=== PATIENT | male | born 1930 | race Caucasian/White ===

== ENCOUNTER 2020-12-20 08:02 | Inpatient (IN) ==
[~2020-12-20 08:02] MED LIST: OPTIRAY 320 125ml IV ONE; SODIUM CHLORIDE 0.9% 250 ML IV ONE
[2020-12-20 08:20] LABS: Basophils # (auto) 0.02 K/uL (0-0.2); Basophils % (auto) 0.3 %; Eosinophils # (auto) 0.24 K/uL (0-0.5); Eosinophils % (auto) 3.7 %; Hemoglobin 15.4 g/dL (14.0-18.0); Immature Granulocytes # (auto) 0.04 K/uL (0.00-0.02); Immature Granulocytes % (auto) 0.6 %; Lymphocytes # (auto) 2.15 K/uL (1.2-3.4); Lymphocytes % (auto) 33.3 %; Mean Corpuscular Hemoglobin 31.4 pg (25-34); Mean Corpuscular Hgb Conc 33.5 g/dL (32-36); Mean Corpuscular Volume 93.9 fL (80-100); Mean Platelet Volume 8.7 fL (7.4-10.4); Monocytes # (auto) 0.81 K/uL (0.11-0.59); Monocytes % (auto) 12.6 %; Neutrophils # (auto) 3.19 K/uL (1.4-6.5); Neutrophils % (auto) 49.5 %; Platelet Count 196 K/uL (130-400); RDW Coefficient of Variation 12.9 % (11.5-14.5); RDW Standard Deviation 44.5 fL (36.4-46.3); White Blood Count 6.45 K/uL (4.8-10.8)
--- NOTE | 2020-12-20 08:30 | CT Scan Report ---
HEAD CT NONCONTRAST CT DOSE: HISTORY: Stroke Like Symptoms TECHNIQUE: Multiaxial CT images of the head were performed without the use of intravenous contrast. A utomated exposure control was utilized for this study. A dose lowering technique was utilized adheri ng to the principles of ALARA. Comparison: None. Findings: The paranasal sinuses and mastoid air cells are clear. The calvarium and skull base are int act. There is no mass, hematoma, midline shift, acute infarct. White matter hypodensity is nonspecifi c but suggestive of microvascular ischemic change. The ventricles and sulci demonstrate mild age-rela kyler involutional changes. 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 Impression: No acute intracranial abnormality. Old lacunar infarcts seen within the bilateral cerebellar hemisphe res. ACT 112: Negative or not required by law. Electronically signed by: Al Felton M.D. 12/20/2020 8:29 AM
--- NOTE | 2020-12-20 08:34 | CT Scan Report ---
HEAD CTA HISTORY: Stroke Like Symptoms TECHNIQUE: Multiaxial CT images of the head were performed following the intravenous administration o f contrast to evaluate the major cerebral vessels. Maximum intensity projection images were also obta ined. A dose lowering technique was utilized adhering to the principles of ALARA. COMPARISON: Head CT 12/20/2020. FINDINGS: There is no mass, hematoma, midline shift, or acute infarct. Visualized intracranial communications marketing intern al carotid arteries, distal vertebral arteries, and basilar artery are widely patent. There is no sig nificant stenosis, occlusion, or aneurysm seen within the bilateral ACAs, MCAs, or fire tender. Hypoplastic distal right vertebral artery. Mild calcified plaque within the distal left vertebral artery. The carmela or dural venous sinuses are patent. Moderate calcified plaque within the bilateral carotid siphons. IMPRESSION: No significant stenosis, occlusion, or aneurysm within the [place]. ACT 112: Negative or not required by law. Electronically signed by: Al Felton M.D. 12/20/2020 8:32 AM
[2020-12-20 08:35] LABS: Alanine Aminotransferase 39 U/L (12-78); Albumin Level 3.6 gm/dl (3.4-5.0); Aspartate Aminotransferase 18 U/L (15-37); BUN Creatinine Ratio 24.6 (10-20); Blood Urea Nitrogen 27 mg/dl (7-18); Calcium 9.1 mg/dl (8.5-10.1); Carbon Dioxide 27 mmol/L (21-32); Chloride 109 mmol/L (98-107); Creatinine Clr Calc Pharmacy 40.6 ml/min; Est GFR (African American) 69.4; Est GFR (Non-African American) 59.9; Glucose 99 mg/dl (70-99); Sodium 143 mmol/L (136-145)
[2020-12-20 08:40] LABS: Albumin Globulin Ratio 1.1 (0.9-2); Alkaline Phosphatase 96 U/L (45-117); Bilirubin,Total 0.7 mg/dl (0.2-1); Globulin 3.2 gm/dl (2.5-4.0); Total Protein 6.8 gm/dl (6.4-8.2); Troponin I < 0.015 ng/ml (0-0.045)
--- NOTE | 2020-12-20 08:41 | CT Scan Report ---
CT angio neck with con CLINICAL HISTORY: Stroke Like Symptoms COMPARISON STUDY: No previous studies for comparison. TECHNIQUE: CT angiography was performed from the aortic arch to the skull base. MIP imaging was perfo rmed. The patient was scanned in a dynamic helical fashion during intravenous administration of 120 c c of Optiray 320. A dose lowering technique was utilized adhering to the principles of ALARA. CT DOSE: 1207.31 mGy.cm Technique: CT angiogram of the carotid and vertebral arteries was obtained using intravenous contrast and 3-D reconstruction. NASCET criteria was utilized. Findings: There is pulmonary emphysema There is a multinodular thyroid gland. There is calcific atheromatous plaque within the right innominate artery and right common carotid art hayden without evidence of a hemodynamically significant stenosis. There is dense calcific plaque involv ing the origin of the right internal carotid artery resulting in a 40% diameter stenosis. There is calcific plaque within the left common carotid artery resulting in a 40% diameter stenosis. There is no evidence of hemodynamically significant internal carotid artery stenosis. 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 There is no evidence of hemodynamically significant left v ertebral artery stenosis or dissection. There is a right vertebral artery origin stenosis. There is m ultifocal right vertebral artery stenosis due to facet and uncovertebral joint disease IMPRESSION: 1. Moderately extensive calcific atheromatous plaque 2. 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 No evidence of high-grade carotid stenosis. 3. 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 ACT 112: Negative or not required by law. Electronically signed by: Michael Faye M.D. 12/20/2020 8:39 AM
--- NOTE | 2020-12-20 08:46 | Emergency Department Note ---
Impression & Plan Left-sided weakness, HTN (hypertension), Cerebral vascular disease, Dehydration, mild, Fall, On clopidogrel therapy ED Provider Note NAME: GERALDO OLSEN AGE: 89 SEX: M ARRIVES VIA: Ambulance INFORMANT: Patient, ED PROVIDER(S): Jared Menjivar MD CHIEF COMPLAINT: Fall, left sided weakness. PLAN: Disposition: Admit Initially seen @ 0800 MEDICAL DECISION MAKING: The patient is a pleasant 89-year-old gentleman with a past medical history of COPD, left subclavian artery stenosis/vascular disease, hypertension, hyperlipidemia, cognitive dysfunction/late onset Alzheimer's disease who presents emergency department with fall this morning which he reports happened because he could not stand because of the sensation of left leg weakness. There is no LOC. EMS arrived to the scene the patient was unable to get up and stand on his own. He takes Plavix but no other known anticoagulation. He reports been healthy prior to today and was last normal in strength when he went to bed at 10 PM last night. Stroke alert was activated in the field prior to arrival. Patient has any recent illness including fevers, chills, cough, congestion, nausea, vomiting, diarrhea, urinary symptoms. He denies any known COVID-19 exposures. Did speak with the patient's over the phone who also reports that he normally can walk without much difficulty and his new weakness was an acute change. On arrival the patient is in no acute distress, afebrile with blood pressure 150s/70s and vital signs otherwise stable. The patient appears clinically dry. He does exhibit left-sided weakness of the upper and lower extremity with 4/5 strength. Face is symmetric. He has no overt aphasia or dysarthria. Initial EKG with poor baseline artifact however likely sinus rhythm, 95 bpm, no overt ST elevation or depression. Chest x-ray negative for acute cardiopulmonary process. Given the patient's last known well was last night at 10 PM he was not a TPA candidate. Moreover CT of the head and CTA head neck were performed and was negative for ICH, CVA and did not demonstrate any large vessel occlusion amenable to endovascular therapy and so telestroke evaluation via monitor was deferred. WBC, H/H and platelets within normal limits. Chemistry without metabolic acidosis. BUN/creatinine> 20 consistent with the patient's clinically dry appearance. LFTs are unremarkable. Troponin negative/undetectable. UA without evidence of infection. COVID-19 RNA, NAAT test was negative. CT of the chest abdomen pelvis also performed to exclude any traumatic process to explain the patient's symptoms and was unremarkable. The patient's new left-sided weakness reasonable to meet the patient for further stroke evaluation. The patient and his over the phone are agreed with this plan. Case was discussed with Carmenza Winter, [facility] PAC, with Dr. Corea, [facility] hospitalist who will evaluate the patient for admission. Triage Nursing notes reviewed and agree them. Additional history obtained from /ems. Prior medical records reviewed Vital Signs: reviewed and remarkable for no significant abnormalities Differential diagnosis: Infection, dehydration, metabolic abnormality, hypo/hyperglycemia, electrolyte disturbance, anemia, hypoxia, cardiac sources, intracerebral event, toxicologic, neurologic, as well as other pathologies. ER treatment provided: See below. Diagnostics interpreted by me: ECG: Sinus rhythm, 95 bpm, no ectopy, no overt ST elevation or depression. Cardiac Monitoring: An order for continuous cardiac monitoring was placed and demonstrated Sinus rhythm, 95 bpm, no ectopy. Laboratory studies: See below Imaging studies: XR chest 1V portable HISTORY: Stroke Like Symptoms COMPARISON: None. FINDINGS: No focal lung consolidations to suggest pneumonia. No evidence for pulmonary edema. There are poststernotomy changes. The heart is normal in size. No pleural effusions. No pneumothorax. There is a vascular stent superior to the aortic knob. There is emphysema with mild chronic interstitial thickening. IMPRESSION: No acute process within the chest. Chronic changes as described above. ACT 112: Negative or not required by law. Electronically signed by: Al Felton M.D. 12/20/2020 9:10 AM -- HEAD CTA HISTORY: Stroke Like Symptoms TECHNIQUE: Multiaxial CT images of the head were performed following the intravenous administration of contrast to evaluate the major cerebral vessels. Maximum intensity projection images were also obtained. A dose lowering techn ique was utilized adhering to the principles of ALARA. COMPARISON: Head CT 12/20/2020. FINDINGS: There is no mass, hematoma, midline shift, or acute infarct. Visualized intracranial internal carotid arteries, distal vertebral arteries, and basilar artery are widely patent. There is no significant stenosis, occlusion, or aneurysm seen within the bilateral ACAs, MCAs, or publicity manager. Hypoplastic distal right vertebral artery. Mild calcified plaque within the distal left vertebral artery. The major dural venous sinuses are patent. Moderate calcified plaque within the bilateral carotid siphons. IMPRESSION: No significant stenosis, occlusion, or aneurysm within the [place]. ACT 112: Negative or not required by law. Electronically signed by: Al Felton M.D. 12/20/2020 8:32 AM -- CT angio neck with con CLINICAL HISTORY: Stroke Like Symptoms COMPARISON STUDY: No previous studies for comparison. TECHNIQUE: CT angiography was performed from the aortic arch to the skull base. MIP imaging was performed. The patient was scanned in a dynamic helical fashion during intravenous administration of 120 cc of Optiray 320. A dose lowering technique was utilized adhering to the principles of ALARA. CT DOSE: 1207.31 mGy.cm Technique: CT angiogram of the carotid and vertebral arteries was obtained using intravenous contrast and 3-D reconstruction. NASCET criteria was utilized. Findings: There is pulmonary emphysema There is a multinodular thyroid gland. There is calcific atheromatous plaque within the right innominate artery and right common carotid artery without evidence of a hemodynamically significant stenosis. There is dense calcific plaque involving the origin of the right internal carotid artery resulting in a 40% diameter stenosis. There is calcific plaque within the left common carotid artery resulting in a 40% diameter stenosis. There is no evidence of hemodynamically significant internal carotid artery stenosis. 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 There is no evidence of hemodynamically significant left vertebral artery stenosis or dissection. There is a right vertebral artery origin stenosis. There is multifocal right vertebral artery stenosis due to facet and uncovertebral joint disease IMPRESSION: 1. Moderately extensive calcific atheromatous plaque 2. 40% diameter stenosis of the origin of the right internal carotid artery, and 40% diameter stenosis in the proximal left common carotid artery. No evidence of high-grade carotid stenosis. 3. 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 Multifocal right vertebral artery stenosis due to facet and uncovertebral joint disease. ACT 112: Negative or not required by law. Electronically signed by: Michael Faye M.D. 12/20/2020 8:39 AM Dictated: 12/20/20827 Transcribed: 12/20/20827 -- CT chest diagnostic wo con CLINICAL HISTORY: Chest pain status post trauma. BILATERAL LEG WEAKNESS. COMPARISON STUDY: Chest x-ray dated 12/20/2020 CT DOSE: 517.30 mGy.cm TECHNIQUE: CT of the thorax was performed from the thoracic inlet to the lung bases. Images are reviewed in the axial, sagittal, and coronal planes. IV contrast was not administered for this examination. A dose lowering technique was utilized adhering to the principles of ALARA. FINDINGS: Thyroid: There is a 19 mm right lobe thyroid nodule. Thoracic aorta: There is a left subclavian artery stent. There are atheromatous calcifications involving the origin of the great vessels. There is no evidence of thoracic aortic aneurysm. Heart: There are coronary artery calcifications. There is no pericardial effusion. Lungs and pleural spaces: The lungs and pleural spaces are clear. There is pulmonary emphysema. There is no pneumothorax. There are basilar atelectatic changes. There is no lobar consolidation. There is no evidence of pulmonary contusion. Mediastinum: There is no evidence of mediastinal hematoma. There is no evidence of pathologic mediastinal lymphadenopathy. There are calcified lymph nodes. Olga: There is no evidence of pathologic hilar adenopathy given the limitations of a noncontrast study Axilla: There is no evidence of pathologic axillary lymphadenopathy. Upper abdomen: Partially visualized upper abdominal viscera is within normal limits. Skeletal structures: No definite acute fractures are visualized. Several minor to a body compression deformities are likely old. There is ankylosis the spine with calcification of the anterior longitudinal ligament. IMPRESSION: No evidence of acute intrathoracic injury. ACT 112: Negative or not required by law. Electronically signed by: Michael Faye M.D. 12/20/2020 10:28 AM Dictated: 12/20/20 1023Transcribed: 12/20/20 1023 -- CT OF THE ABDOMEN AND PELVIS WITHOUT CONTRAST CLINICAL HISTORY: Left hip pain status post fall. COMPARISON STUDY: No previous studies for comparison. TECHNIQUE: Axial images of the abdomen and pelvis were obtained without IV contrast. Images were reviewed in the axial, sagittal, and coronal planes. Automated exposure control was utilized for the study. A dose lowering technique was utilized adhering to the principles of ALARA. FINDINGS: Note is made of contrast within the collecting systems, ureters and bladder from recent contrast-enhanced CT. No hemoperitoneum or pneumoperitoneum is present. Evaluation of the abdomen and pelvis is suboptimal on this unenhanced examination. There is no evidence for traumatic injury to the liver, spleen, adrenal glands, kidneys or pancreas on this unenhanced exam. There are small gallstones within the gallbladder. A small suspected right renal cyst is present. There is no hydronephrosis. No lymphadenopathy is present. There is a moderate amount of stool within the rectum. There is no evidence for a bowel obstruction. A right femoral internal fixation is partially imaged. There is a healed intertrochanteric fracture of the right femur. An L1 compression fracture is likely old. No acute fracture within the pelvis or hips is identified. No acute lumbar spine fracture is identified. Moderate multilevel degenerative changes within the lumbar spine are present. There is mild dextroscoliosis of the lumbar spine. Sacroiliac joints are intact. IMPRESSION: 1. No acute traumatic findings within the abdomen or pelvis on unenhanced exam. 2. No acute fracture within the pelvis or hips. L1 compression fracture which is likely old. 3. Moderate amount of stool within the rectum. 4. Cholelithiasis. ACT 112: Negative or not required by law. Electronically signed by: Jermaine Moralez M.D. 12/20/2020 10:36 AM Dictated: 12/20/20 1029Transcribed: 12/20/20 1029 -- Consultation(s): Case was discussed with Carmenza Winter, [facility] PAC, with Dr. Corea, [facility] hospitalist who will evaluate the patient for admission. HPI: The patient is a pleasant 89-year-old gentleman with a past medical history of COPD, left subclavian artery stenosis/vascular disease, hypertension, hyperlipidemia, cognitive dysfunction/late onset Alzheimer's disease who presents emergency department with fall this morning which he reports happened because he could not stand because of the sensation of left leg weakness. There is no LOC. EMS arrived to the scene the patient was unable to get up and stand on his own. He takes Plavix but no other known anticoagulation. He reports been healthy prior to today and was last normal in strength when he went to bed at 10 PM last night. Stroke alert was activated in the field prior to arrival. Patient has any recent illness including fevers, chills, cough, congestion, nausea, vomiting, diarrhea, urinary symptoms. He denies any known COVID-19 exposures. Did speak with the patient's over the phone who also reports that he normally can walk without much difficulty and his new weakness was an acute change. ROS: See above HPI for pertinent positives & negatives. A total of 10 systems reviewed and were otherwise negative. PAST MEDICAL HISTORY:See Below PAST SURGICAL HISTORY:See Below FAMILY HISTORY:See Below SOCIAL HISTORY:See Below HOME MEDICATIONS:See Below ALLERGIES:See Below VITALS:See Below PHYSICAL EXAMINATION: GENERAL: Awake, alert, fatigued-appearing, in no distress HENT: Normocephalic, atraumatic. Oropharynx with dry mucous membranes and otherwise unremarkable. EYES: Normal conjunctiva. Sclera non-icteric. NECK: Supple. No nuchal rigidity. FROM. No JVD. RESPIRATORY: Clear to auscultation. CARDIAC: Regular rate, normal rhythm. Extremities warm and well perfused. Pulses equal. ABDOMEN: Soft, non-distended. No tenderness to palpation. No rebound or guarding. No masses. RECTAL: Deferred. MUSCULOSKELETAL: Chest examination reveals no tenderness. The back is symmetrical on inspection without obvious abnormality. There is no CVA tenderness to palpation. No joint edema. LOWER EXTREMITIES: Calves are equal size bilaterally and non-tender. No edema. No discoloration. NEURO: 4/5 strength of left upper and left lower extremity. Right upper and rig ht lower extremity with 5/5 strength. No overt aphasia or dysarthria. SKIN: Left hand skin tears. No rash or jaundice noted. 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 Surgical History H/O angioplasty L subclavian stent History of carpal tunnel release History of coronary artery bypass graft x 3 2010 [place] History of surgery on extremity Femur surgery s/p fracture History of transurethral resection of prostate Family History Father , 58 Myocardial infarction 58 Mother Alzheimer disease Social History Smoking Status: Former smoker Tobacco Type: Cigarettes packs per day: 1.5; Years Smoked: 40; Hx Alcohol Use: Yes Hx Substance Use: No Preferred Language: Romansh Communication Ability: Effective marital status: Current Living Situation: Spouse current occupational status: retired Feels Safe at Home: Yes Allergies Allergies Allergy/AdvReac Type Severity Reaction Status Date / Time salicylates AdvReac Severe GIB Verified 12/20/20 10:42 povidone-iodine AdvReac Mild rash Verified 12/20/20 10:42 [From Betadine] soap [From Betadine] AdvReac Mild rash Verified 12/20/20 10:42 bacitracin AdvReac Unknown Verified 12/20/20 10:42 [From Neosporin ([id number])] neomycin AdvReac Unknown Verified 12/20/20 10:42 [From Neosporin ([id number])] polymyxin B AdvReac Unknown Verified 12/20/20 10:42 [From Neosporin ([id number])] Home Meds Home Medications Medication Instructions Recorded Confirmed atorvastatin 40 mg PO DAILY 12/20/20 12/20/20 clopidogrel [Plavix] 75 mg PO DAILY 12/20/20 12/20/20 metoprolol succinate 25 mg PO DAILY 12/20/20 12/20/20 mirtazapine 15 mg PO HS 12/20/20 12/20/20 Results & Data (ED) Vital Signs Vital Signs - 24 hr 12/20/20 08:19 12/20/20 08:22 12/20/20 08:23 Temperature 36.9 C Temperature Source Oral Pulse Rate 89 90 89 Pulse Rate [Apical] Pulse Rate from SpO2 Sensor 87 90 89 Respiratory Rate 14 21 20 Blood Pressure 159/79 H 159/79 H Blood Pressure [Left Arm] Blood Pressure Mean 105 105 Blood Pressure Mean [Left Arm] Pulse Oximetry 94 94 93 Oxygen Delivery Method Room Air Sepsis Recent Fever Within 48 Hours No Sepsis New/Unexplained Change in Mental Status No Sepsis Action Taken by Nursing No Action Required 12/20/20 08:30 12/20/20 09:00 12/20/20 09:09 Temperature Temperature Source Pulse Rate 89 82 80 Pulse Rate [Apical] Pulse Rate from SpO2 Sensor 89 82 80 Respiratory Rate 24 21 24 Blood Pressure 159/73 H Blood Pressure [Left Arm] Blood Pressure Mean 101 Blood Pressure Mean [Left Arm] Pulse Oximetry 94 92 93 Oxygen Delivery Method Sepsis Recent Fever Within 48 Hours Sepsis New/Unexplained Change in Mental Status Sepsis Action Taken by Nursing 12/20/20 09:30 12/20/20 09:51 Temperature Temperature Source Pulse Rate 79 Pulse Rate [Apical] 79 Pulse Rate from SpO2 Sensor Respiratory Rate 17 18 Blood Pressure 157/74 H Blood Pressure [Left Arm] 157/78 H Blood Pressure Mean 101 Blood Pressure Mean [Left Arm] 104 Pulse Oximetry 96 Oxygen Delivery Method Room Air Sepsis Recent Fever Within 48 Hours Sepsis New/Unexplained Change in Mental Status Sepsis Action Taken by Nursing Laboratory Data Attestation: I reviewed the patient's lab results. Result diagrams: 12/20/20 08:00 12/20/20 08:00 Lab Results 12/20/20 12/20/20 12/20/20 Range/Units 08:00 08:00 08:21 WBC 6.45 (4.8-10.8) K/uL RBC 4.90 (4.7-6.1) M/uL Hgb 15.4 (14.0-18.0) g/dL Hct 46.0 (42-52) % MCV 93.9 (80-100) fL MCH 31.4 (25-34) pg MCHC 33.5 (32-36) g/dL RDW Std Deviation 44.5 (36.4-46.3) fL RDW Coeff of Ken 12.9 (11.5-14.5) % Plt Count 196 (130-400) K/uL MPV 8.7 (7.4-10.4) fL Immature Gran % (Auto) 0.6 % Neut % (Auto) 49.5 % Lymph % (Auto) 33.3 % [place] % (Auto) 12.6 % Eos % (Auto) 3.7 % Baso % (Auto) 0.3 % Neut # (Auto) 3.19 (1.4-6.5) K/uL Lymph # (Auto) 2.15 (1.2-3.4) K/uL [place] # (Auto) 0.81 H (0.11-0.59) K/uL Eos # (Auto) 0.24 (0-0.5) K/uL Baso # (Auto) 0.02 (0-0.2) K/uL Immature Gran # (Auto) 0.04 H (0.00-0.02) K/uL PT (9.0-12.0) Seconds INR (0.9-1.1) APTT (21.0-31.0) Seconds PTT Ratio Sodium 143 (136-145) mmol/L Potassium 4.0 (3.5-5.1) mmol/L Chloride 109 H (98-107) mmol/L Carbon Dioxide 27 (21-32) mmol/L Anion Gap 7.0 (3-11) BUN 27 H (7-18) mg/dl Creatinine 1.09 (0.6-1.4) mg/dl Est Cr Clr Drug Dosing 40.6 ml/min Est GFR ( Amer) 69.4 Est GFR (Non-Af Amer) 59.9 BUN/Creatinine Ratio 24.6 H (10-20) Glucose 99 (70-99) mg/dl Calcium 9.1 (8.5-10.1) mg/dl Magnesium 2.0 (1.8-2.4) mg/dl Total Bilirubin 0.7 (0.2-1) mg/dl AST 18 (15-37) U/L ALT 39 (12-78) U/L Alkaline Phosphatase 96 (45-117) U/L Troponin I < 0.015 (0-0.045) ng/ml Total Protein 6.8 (6.4-8.2) gm/dl Albumin 3.6 (3.4-5.0) gm/dl Globulin 3.2 (2.5-4.0) gm/dl Albumin/Globulin Ratio 1.1 (0.9-2) Urine Color Urine Appearance (Clear) Urine pH (4.5-7.5) Ur Specific [place] (1.000-1.030) Urine Protein (Negative) Urine Glucose (UA) (Negative) Urine Ketones (Negative) Urine Blood (Negative) Urine Nitrite (Negative) Urine Bilirubin (Negative) Urine Urobilinogen (Negative) Ur Leukocyte Esterase (Negative) Blood Type O Positive Antibody Screen NEGATIVE 12/20/20 12/20/20 Range/Units 08:21 09:25 WBC (4.8-10.8) K/uL RBC (4.7-6.1) M/uL Hgb (14.0-18.0) g/dL Hct (42-52) % MCV (80-100) fL MCH (25-34) pg MCHC (32-36) g/dL RDW Std Deviation (36.4-46.3) fL RDW Coeff of Ken (11.5-14.5) % Plt Count (130-400) K/uL MPV (7.4-10.4) fL Immature Gran % (Auto) % Neut % (Auto) % Lymph % (Auto) % [place] % (Auto) % Eos % (Auto) % Baso % (Auto) % Neut # (Auto) (1.4-6.5) K/uL Lymph # (Auto) (1.2-3.4) K/uL [place] # (Auto) (0.11-0.59) K/uL Eos # (Auto) (0-0.5) K/uL Baso # (Auto) (0-0.2) K/uL Immature Gran # (Auto) (0.00-0.02) K/uL PT 10.6 (9.0-12.0) Seconds INR 1.0 (0.9-1.1) APTT 23.2 (21.0-31.0) Seconds PTT Ratio 0.9 Sodium (136-145) mmol/L Potassium (3.5-5.1) mmol/L Chloride (98-107) mmol/L Carbon Dioxide (21-32) mmol/L Anion Gap (3-11) BUN (7-18) mg/dl Creatinine (0.6-1.4) mg/dl Est Cr Clr Drug Dosing ml/min Est GFR ( Amer) Est GFR (Non-Af Amer) BUN/Creatinine Ratio (10-20) Glucose (70-99) mg/dl Calcium (8.5-10.1) mg/dl Magnesium (1.8-2.4) mg/dl Total Bilirubin (0.2-1) mg/dl AST (15-37) U/L ALT (12-78) U/L Alkaline Phosphatase (45-117) U/L Troponin I (0-0.045) ng/ml Total Protein (6.4-8.2) gm/dl Albumin (3.4-5.0) gm/dl Globulin (2.5-4.0) gm/dl Albumin/Globulin Ratio (0.9-2) Urine Color Yellow Urine Appearance Clear (Clear) Urine pH 5.0 (4.5-7.5) Ur Specific [place] 1.045 H (1.000-1.030) Urine Protein Negative (Negative) Urine Glucose (UA) Negative (Negative) Urine Ketones Negative (Negative) Urine Blood Negative (Negative) Urine Nitrite Negative (Negative) Urine Bilirubin Negative (Negative) Urine Urobilinogen Negative (Negative) Ur Leukocyte Esterase Negative (Negative) Blood Type Antibody Screen Administered Medications Lactated Ringer's (Lr) 1,000 mls @ 80 mls/hr IV .[id number] Stop: 12/21/20 01:29 Last Admin: 12/20/20 13:16 Dose: 80 mls/hr Documented by: [id number] Discontinued Medications Sodium Chloride (Nss) 250 mls @ 999 mls/hr IV .[id number] ONE Stop: 12/20/20 08:10 Last Infusion: 12/20/20 09:15 Dose: 0 mls/hr Documented by: [id number] Admin: 12/20/20 08:50 Dose: 999 mls/hr Documented by: [id number] Ioversol (Optiray 320 125ml) 120 ml IV ONCE ONE Stop: 12/20/20 08:03 Last Admin: 12/20/20 08:03 Dose: 120 ml Documented by: [id number] Discharge Plan Visit Data Chief Complaint: Stroke Alert ED Provider: Jared Menjivar Discharge Problem: Left-sided weakness, HTN (hypertension), Cerebral vascular disease, Dehydration, mild, Fall, On clopidogrel therapy Patient Disposition: Admitted As Inpatient Discharge Instructions Interventions: ED Discharge Assessment Last Done: 12/20/20 11:36 Discharge Problem: HTN (hypertension) Qualifiers: Hypertension type: unspecified Qualified Code(s): I10 - Essential (primary) hypertension Fall Qualifiers: Encounter type: initial encounter Qualified Code(s): W19.XXXA - Unspecified fall, initial encounter
[2020-12-20 08:52] LABS: Partial Thromboplastin Ratio 0.9; Partial Thromboplastin Time 23.2 Seconds (21.0-31.0); Prothrombin Time 10.6 Seconds (9.0-12.0)
--- NOTE | 2020-12-20 09:11 | XRay Report ---
XR chest 1V portable HISTORY: Stroke Like Symptoms COMPARISON: None. FINDINGS: No focal lung consolidations to suggest pneumonia. No evidence for pulmonary edema. There a re poststernotomy changes. The heart is normal in size. No pleural effusions. No pneumothorax. There is a vascular stent superior to the aortic knob. There is emphysema with mild chronic interstitial th ickening. IMPRESSION: No acute process within the chest. Chronic changes as described above. ACT 112: Negative or not required by law. Electronically signed by: Al Felton M.D. 12/20/2020 9:10 AM
[2020-12-20 09:36] LABS: Appearance Urine Clear (Clear); Bilirubin Urine Negative (Negative); Blood Urine Negative (Negative); Color Urine Yellow; Glucose Urine UA Negative (Negative); Ketones Urine Negative (Negative); Leukocyte Esterase Urine Negative (Negative); Nitrite Urine Negative (Negative); Protein Urine Negative (Negative); Specific Gravity Urine 1.045 (1.000-1.030); Urobilinogen Urine Negative (Negative)
--- NOTE | 2020-12-20 10:29 | CT Scan Report ---
CT chest diagnostic wo con CLINICAL HISTORY: Chest pain status post trauma. BILATERAL LEG WEAKNESS. COMPARISON STUDY: Chest x-ray dated 12/20/2020 CT DOSE: 517.30 mGy.cm TECHNIQUE: CT of the thorax was performed from the thoracic inlet to the lung bases. Images are revi ewed in the axial, sagittal, and coronal planes. IV contrast was not administered for this examinatio n. A dose lowering technique was utilized adhering to the principles of ALARA. FINDINGS: Thyroid: There is a 19 mm right lobe thyroid nodule. Thoracic aorta: There is a left subclavian artery stent. There are atheromatous calcifications involv ing the origin of the great vessels. There is no evidence of thoracic aortic aneurysm. Heart: There are coronary artery calcifications. There is no pericardial effusion. Lungs and pleural spaces: The lungs and pleural spaces are clear. There is pulmonary emphysema. There is no pneumothorax. There are basilar atelectatic changes. There is no lobar consolidation. There is no evidence of pulmonary contusion. Mediastinum: There is no evidence of mediastinal hematoma. There is no evidence of pathologic mediast inal lymphadenopathy. There are calcified lymph nodes. Olga: There is no evidence of pathologic hilar adenopathy given the limitations of a noncontrast stud y Axilla: There is no evidence of pathologic axillary lymphadenopathy. Upper abdomen: Partially visualized upper abdominal viscera is within normal limits. Skeletal structures: No definite acute fractures are visualized. Several minor to a body compression deformities are likely old. There is ankylosis the spine with calcification of the anterior longitudi nal ligament. IMPRESSION: No evidence of acute intrathoracic injury. ACT 112: Negative or not required by law. Electronically signed by: Michael Faye M.D. 12/20/2020 10:28 AM
--- NOTE | 2020-12-20 10:38 | CT Scan Report ---
CT OF THE ABDOMEN AND PELVIS WITHOUT CONTRAST CLINICAL HISTORY: Left hip pain status post fall. COMPARISON STUDY: No previous studies for comparison. TECHNIQUE: Axial images of the abdomen and pelvis were obtained without IV contrast. Images were revi ewed in the axial, sagittal, and coronal planes. Automated exposure control was utilized for the mike dy. A dose lowering technique was utilized adhering to the principles of ALARA. FINDINGS: Note is made of contrast within the collecting systems, ureters and bladder from recent con trast-enhanced CT. No hemoperitoneum or pneumoperitoneum is present. Evaluation of the abdomen and pe lvis is suboptimal on this unenhanced examination. There is no evidence for traumatic injury to the l iver, spleen, adrenal glands, kidneys or pancreas on this unenhanced exam. There are small gallstones within the gallbladder. A small suspected right renal cyst is present. There is no hydronephrosis. N o lymphadenopathy is present. There is a moderate amount of stool within the rectum. There is no evid ence for a bowel obstruction. A right femoral internal fixation is partially imaged. There is a heale d intertrochanteric fracture of the right femur. An L1 compression fracture is likely old. No acute f racture within the pelvis or hips is identified. No acute lumbar spine fracture is identified. Modera te multilevel degenerative changes within the lumbar spine are present. There is mild dextroscoliosis of the lumbar spine. Sacroiliac joints are intact. IMPRESSION: 1. No acute traumatic findings within the abdomen or pelvis on unenhanced exam. 2. No acute fracture within the pelvis or hips. L1 compression fracture which is likely old. 3. Moderate amount of stool within the rectum. 4. Cholelithiasis. ACT 112: Negative or not required by law. Electronically signed by: eJrmaine Moralez M.D. 12/20/2020 10:36 AM
--- NOTE | 2020-12-20 10:40 | History & Physical Report ---
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 admit to PCU consult neurology continue plavix and statin - hx of gastric ulcer with full dose ASA obtain MRI w/ & w/o of brain echo - last had stress echo at [facility] EF 66%, negative for inducible ischemia PT/OT/ST Pt goes by, "C[facility]est[facility]" obtain orthostatics (3) Dehydration, mild: bun/ratio elevated received 250ml IVF in ED give 1 L of LR 80cc/hr repeat in a.m. (4) Skin tear of left hand without complication: consult wound care for dressing placement (5) Poor dentition: discussed with pt had 2 teeth fall out 1 week ago hx of dental abscess in past requiring extractions - concerned about infection afebrile, wbc WNL so unlikely - will obtain blood cultures for completeness dental appt next week overall poor appetite due to inability to chew consult system support developer for assistance in approp diet (6) CAD (coronary artery disease): hx of CABG x 3 hx of L subclavian artery stenosis s/p stent follows [facility] Dr. Dial in [place] continue statin, plavix, metoprolol not on ASA 2/2 to hx of bleeding ulcer - discussed with this was on 325mg asa. Has not have difficulty with ulcers in several years ekg reviewed, no CP/SOB (7) HTN (hypertension): pt hypertensive in ED allow permissible HTN for 24hrs unless negative CVA on MRI continue metoprolol (8) COPD (chronic obstructive pulmonary disease): no acute exacerbation hx of tobacco abuse prn duoneb (9) DVT prophylaxis: scd/teds for now if no s/sx of bleeding start chemical prophylaxis tomorrow Dispo: PCU PCP : Olamide FULL CODE Pt was seen and examined in collaboration with Dr. Corea, please see addendum History of Present Illness Chief Complaint: Left-sided weakness starting this morning. 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 His last known well was yesterday at approximately 10 PM. He woke up this morning, got out of bed and sustained a fall with a cut to his dorsal aspect of left hand. He experienced left-sided weakness and was unable to get up or ambulate. EMS was summoned and due to left-sided weakness weakness stroke alert was called. Due to patient being out of the TPA window he did not undergo formal stroke alert evaluation by neurology at [facility]. Upon presentation he did still have some residual left-sided weakness but no other focal neuro deficit per ED provider. Patient does complain of some mild dizziness especially with sitting forward but denies any syncope. Except for today's fall he denies any other prior falls. He denies loss of consciousness or hitting his head. He denies recent illness, fever, chills, sweats, change in hearing or vision, difficulty swallowing, chest pain, shortness of breath, cough, nausea, vomiting, abdominal pain, dysuria, increased urgency or frequency with urination, melena or hematochezia. Last BM was yesterday. Patient did not take any of his morning medications. He does state he has difficulty with memory and recommends calling for further information about today's events. states at approximately 7 AM she looked into the bedroom and he was hunched over and leaning over the bed. He stated that he needed help and that he could not move. Both of his legs were weak and he was having difficulty walking. He was also having left-sided arm weakness. He stated he needed to use the bathroom and needed help walking into the bathroom. Unfortunately he did urinate the bed which states he has never done this before. She tried to help him into the bathroom and when he reached for the door he fell and cut open his left hand and was bleeding. He was unable to get up and therefore she called EMS. In ED patient was stroke alert. He did undergo head and neck CTA along with head CT. No acute findings were noted although it did reveal High-grade stenosis of the right vertebral artery origin and multifocal right vertebral artery stenosis due to facet and uncovertebral joint disease. He underwent chest x-ray and CTA of his chest abdomen pelvis to rule out any orthopedic etiology of left-sided weakness which was mostly unremarkable. Lab work did r eveal some mild prerenal azotemia but otherwise unremarkable. Given persistent left-sided weakness and difficulty ambulating he was recommended for admission. Allergies Allergy/AdvReac Type Severity Reaction Status Date / Time salicylates AdvReac Severe GIB Verified 12/20/20 10:42 povidone-iodine AdvReac Mild rash Verified 12/20/20 10:42 [From Betadine] soap [From Betadine] AdvReac Mild rash Verified 12/20/20 10:42 bacitracin AdvReac Unknown Verified 12/20/20 10:42 [From Neosporin ([id number])] neomycin AdvReac Unknown Verified 12/20/20 10:42 [From Neosporin ([id number])] polymyxin B AdvReac Unknown Verified 12/20/20 10:42 [From Neosporin ([id number])] Home Medications Medication Instructions Recorded Confirmed Type atorvastatin 40 mg PO DAILY 12/20/20 12/20/20 History clopidogrel [Plavix] 75 mg PO DAILY 12/20/20 12/20/20 History metoprolol succinate 25 mg PO DAILY 12/20/20 12/20/20 History mirtazapine 15 mg PO HS 12/20/20 12/20/20 History Past Med/Surg History Medical History CAD (coronary artery disease) Carotid artery stenosis s/p L CEA Cerebral vascular disease hx of small cerebellar lacunar infarct, R occipital infarct COPD (chronic obstructive pulmonary disease) HLD (hyperlipidemia) HTN (hypertension) 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 Surgical History H/O angioplasty L subclavian stent History of carpal tunnel release History of coronary artery bypass graft x 3 2010 [place] History of surgery on extremity Femur surgery s/p fracture History of transurethral resection of prostate Family History Father , 58 Myocardial infarction 58 Mother Alzheimer disease Social History Smoking Status: Former smoker Tobacco Type: Cigarettes packs per day: 1.5; Years Smoked: 40; Hx Alcohol Use: Yes Hx Substance Use: No Preferred Language: Martiniquais Communication Ability: Effective marital status: Current Living Situation: Spouse current occupational status: retired Feels Safe at Home: Yes Review of Systems Review of Systems: All systems reviewed & are unremarkable except as noted in HPI & below Physical Exam Physical Exam: Constitutional: Elderly, male, thin, vitals as above, NAD, sitting up in bed, pleasant, hard of hearing, answers questions appropriately Head: Normocephalic, Atraumatic Eyes: PERRL, conjunctivae normal, anicteric sclerae ENMT: external ear and nose normal, oropharynx normal Neck: trachea midline, no thyromegaly normal visual inspection Respiratory: Diminished breath sounds throughout, distant breath sounds, poor air exchange, normal respiratory effort, otherwise lungs clear to auscultation, no wheeze, rales, rhonchi. 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 Skin: Skin tear to dorsum of left hand x2, 2 cm skin tear distal to second and third phalanx, 4 cm skin tear to medial aspect of dorsum of left hand, no rashes, warm and dry mild turgor Neurologic: PERRL, EOMI, accommodation nl, no face palsy, no dysarthria CN's II-XI intact bilaterally and moves all extremities Psychiatric: A+Ox3, euthymic affect Lymphatic: no cervical or axillary lymphadenopathy : deferred Results & Data Results & Data ([facility]) Vital Signs (Past 12 Hours) Vital Signs Temp Pulse Pulse Resp BP BP Pulse Ox 12/20/20 09:51 79 18 157/78 H 96 12/20/20 09:30 79 17 157/74 H 12/20/20 09:09 80 24 159/73 H 93 12/20/20 09:00 82 21 92 12/20/20 08:30 89 24 94 12/20/20 08:23 89 20 93 12/20/20 08:22 90 21 159/79 H 94 12/20/20 08:19 36.9 C 89 14 159/79 H 94 Diagnostic Findings Neck CTA: IMPRESSION: 1. Moderately extensive calcific atheromatous plaque 2. 40% diameter stenosis of the origin of the right internal carotid artery, and 40% diameter stenosis in the proximal left common carotid artery. No evidence of high-grade carotid stenosis. 3. 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 Multifocal right vertebral artery stenosis due to facet and uncovertebral joint disease. Head CTA: IMPRESSION: No significant stenosis, occlusion, or aneurysm within the [place]. Head CT: Impression: No acute intracranial abnormality. Old lacunar infarcts seen within the bilateral cerebellar hemispheres. CXR: IMPRESSION: No acute process within the chest. Chronic changes as described above. Chest CT: IMPRESSION: No evidence of acute intrathoracic injury. CT abd/pelvis: IMPRESSION: 1. No acute traumatic findings within the abdomen or pelvis on unenhanced exam. 2. No acute fracture within the pelvis or hips. L1 compression fracture which is likely old. 3. Moderate amount of stool within the rectum. 4. Cholelithiasis. Medications Administered Discontinued Medications Sodium Chloride (Nss) 250 mls @ 999 mls/hr IV .Q16M ONE Stop: 12/20/20 08:10 Last Infusion: 12/20/20 09:15 Dose: 0 mls/hr Documented by: [id number] Admin: 12/20/20 08:50 Dose: 999 mls/hr Documented by: [id number] Ioversol (Optiray 320 125ml) 120 ml IV ONCE ONE Stop: 12/20/20 08:03 Last Admin: 12/20/20 08:03 Dose: 120 ml Documented by: [id number] ECG Rhythm: normal sinus Findings: + 1st degree AV block (258ms) COVID-19 Results Results COVID-19 Adm Lab Results: RBC 4.90 M/uL (4.7-6.1) 12/20/20 WBC 6.45 K/uL (4.8-10.8) 12/20/20 Hgb 15.4 g/dL (14.0-18.0) 12/20/20 Hct 46.0 % (42-52) 12/20/20 Plt Count 196 K/uL (130-400) 12/20/20 Neutrophils (%) (Auto) 49.5 % 12/20/20 Lymphocytes (%) (Auto) 33.3 % 12/20/20 Monocytes # (Auto) 0.81 K/uL (0.11-0.59) H 12/20/20 Eosinophils # (Auto) 0.24 K/uL (0-0.5) 12/20/20 Immature Granulocyte % (Auto) 0.6 % 12/20/20 Neutrophils # (Auto) 3.19 K/uL (1.4-6.5) 12/20/20 Lymphocytes # (Auto) 2.15 K/uL (1.2-3.4) 12/20/20 Monocytes # (Auto) 0.81 K/uL (0.11-0.59) H 12/20/20 Eosinophils # (Auto) 0.24 K/uL (0-0.5) 12/20/20 Basophils # (Auto) 0.02 K/uL (0-0.2) 12/20/20 Immature Granulocyte # (Auto) 0.04 K/uL (0.00-0.02) H 12/20/20 Na 143 mmol/L (136-145) 12/20/20 K 4.0 mmol/L (3.5-5.1) 12/20/20 Cl 109 mmol/L (98-107) H 12/20/20 CO2 27 mmol/L (21-32) 12/20/20 Anion Gap 7.0 (3-11) 12/20/20 BUN 27 mg/dl (7-18) H 12/20/20 Creatinine 1.09 mg/dl (0.6-1.4) 12/20/20 BUN/Creatinine Ratio 24.6 (10-20) H 12/20/20 Glucose Level 99 mg/dl (70-99) 12/20/20 Ca 9.1 mg/dl (8.5-10.1) 12/20/20 Total Bilirubin 0.7 mg/dl (0.2-1) 12/20/20 AST/SGOT 18 U/L (15-37) 12/20/20 ALT/SGPT 39 U/L (12-78) 12/20/20 Alkaline Phosphatase 96 U/L (45-117) 12/20/20 Total Protein 6.8 gm/dl (6.4-8.2) 12/20/20 Albumin 3.6 gm/dl (3.4-5.0) 12/20/20 Globulin 3.2 gm/dl (2.5-4.0) 12/20/20 Albumin/Globulin Ratio 1.1 (0.9-2) 12/20/20 Troponin I < 0.015 ng/ml (0-0.045) 12/20/20 PTT 23.2 Seconds (21.0-31.0) 12/20/20 INR 1.0 (0.9-1.1) 12/20/20 SARS-CoV-2, RNA, NAAT NEGATIVE (NEGATIVE) 12/20/[address] 12/20/20 Chest X-Ray 12/20/20 Code Status & VTE Plan Code Status Full code VTE Prophylaxis Plan VTE Prophylaxis will be ordered: Yes Supervising Physician Co-Signing Physician Notes Patient is an 89-year-old male with multiple comorbidities presents with left- sided weakness noted since this morning. He sustained a fall while trying to ge t out of bed, but denies any head trauma or loss of consciousness. Poor historian. Complains of dizziness. Had ambulatory dysfunction. Also had bladder incontinence this morning. Please review HPI for complete details of presentation. CT head and neck showed no acute findings but showed findings suggestive of 40% stenosis of origin of the internal carotid artery, proximal left carotid artery. Also showed high-grade stenosis of the right vertebral artery origin. Also noted wound lacunar infarcts within bilateral cerebellar hemispheres. Imaging studies also showed L1 fracture likely old. On exam patient is elderly, thin, frail, no apparent distress, normocephalic atraumatic, lungs--decreased breath sounds, clear to auscultation, S1-S2, no murmur, abdomen soft, nontender, normal bowel sounds, alert, awake, oriented, left 4/5 LUE, LLE weakness otherwise grossly no focal neurological deficits. Patient is admitted for management of strokelike symptoms. MRI head currently pending. Blood pressure elevated, will allow permissive hypertension. Continue Plavix, statin for now. Will check lipid panel. Consulted neurology. Check orthostatics given dizziness. Speech therapy, PT OT consulted. Fall, aspiration precautions. I personally reviewed the record. Patient is interviewed and examined at bedside. Patient's care is coordinated with Carmenza Winter PA-C. Please refer to the documentation above for details of patient's presentation and for discussion of other issues.
[2020-12-20] MEDS ORDERED: ONDANSETRON INJ 2 MG/ML 2 ML VIAL IV PRN (12:51)
[2020-12-20] MEDS ORDERED: ALUMINUM/MAGNESIUM SUSP 30 ML UDC PO PRN (12:51)
[2020-12-20] MEDS ORDERED: POLYETHYLENE (MIRALAX) 17 GM PACK PO PRN (12:51)
[2020-12-20] MEDS ORDERED: PHARMACIST DISCHARGE MED REC CONSULT PRN (12:51)
[2020-12-20] MEDS ORDERED: MAGNESIUM HYDROXIDE SUSP 30 ML UDC PO PRN (12:51)
[2020-12-20] MEDS ORDERED: ALBUT/IPRATROP 3MG/0.5MG NEB 3 ML VIAL NEB PRN (12:51)
[2020-12-20] MEDS ORDERED: LACTATED RINGER'S 1,000 ML IV SCH (13:00)
--- NOTE | 2020-12-20 13:36 | Neurology Consultation ---
Date of Consultation December 20, 2020 Assessment & Plan (1) Left-sided weakness: 1. CT head- old strokes- MRI brain would be better assessment if patient can tolerate 2. CTA head and neck no significant stenosis 3. continue plavix 75 mg for now- history of bleed on aspirin in past 4. PT/OT for discharge needed 5. permissive HTN for now but then optimize HTN, HLD, LDL <70- consider patient age 6. TTE- EF 60-65% no ASD (2) Fall: 1. monitor hand - injury Present on Admission?: Yes (3) Late onset Alzheimer dementia: 1. may have some hospital delirium 2. already on remeron 15 mg hs 3. watch for sundowning Present on Admission?: Yes Supervising Physician Co-Signing Physician Notes I have seen and discussed above patient with Dr Cherri Turk, neurology patient seen and examined discussed with Cherri Estrada. Reviewed history. M RI of the brain shows a patchy right MCA infarction extending to the cortex but also involving the deep white matter it is patchy and relatively small. On exam he is awake and alert he is oriented to hospital and person but not time. There is no right left confusion. There is some denial of deficit. Cranial nerves no field cut no visual extension no flattening of the nasolabial folds and normal speech. Left upper extremity is about 4 out of 5 there is a left drift and decreased left rapid alternating movements. Left lower extremity appears full no decrement to light touch and there is no double simultaneous extinction. He is mildly clumsy on left [id number]. Impression right cortical subcortical small patchy right MCA infarction. CTA showing nothing responsible for the same. This is unrelated to his vertebral artery stenosis. There is no high-grade MCA stenosis or internal carotid stenosis. Plan modify vascular risk factors better control of blood pressure. Recommend echo cardiac monitoring. The patient should have a Zio patch hall monitor as an outpatient to rule out atrial fibrillation. Recommend checking LDL with a goal 70 or less. Would continue aspirin but not add Plavix as the patient has apparently had GI bleeding in the past. 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 He woke got out of bed and sustained a fall with a cut to his dorsal aspect of left hand. He had left-sided weakness and was unable to get up or ambulate. Stroke alert was called but he was outside the TPA window. There was still some residual left-sided weakness but no other focal neuro deficit. He was also having some mild dizziness especially with sitting forward but denies any syncope. He has difficulty with memory. Wifes report - he was hunched over and leaning over the bed. Both of his legs were weak and he was having difficulty walking. He was also having left-sided arm weakness and needed help walking into the bathroom. She tried to help him into the bathroom and when he reached for the door he fell and cut open his left hand and was bleeding. He is sitting in bed and knows he feel but cant say if he was dizzy, does not know if he had strokes in the past. denies CP, SOB, abdominal pain, +left arm dysmetric Allergies Allergy/AdvReac Type Severity Reaction Status Date / Time salicylates AdvReac Severe GIB Verified 12/20/20 10:42 povidone-iodine AdvReac Mild rash Verified 12/20/20 10:42 [From Betadine] soap [From Betadine] AdvReac Mild rash Verified 12/20/20 10:42 bacitracin AdvReac Unknown Verified 12/20/20 10:42 [From Neosporin ([id number])] neomycin AdvReac Unknown Verified 12/20/20 10:42 [From Neosporin ([id number])] polymyxin B AdvReac Unknown Verified 12/20/20 10:42 [From Neosporin ([id number])] Home Medications Medication Instructions Recorded Confirmed Type atorvastatin 40 mg PO DAILY 12/20/20 12/20/20 History clopidogrel [Plavix] 75 mg PO DAILY 12/20/20 12/20/20 History metoprolol succinate 25 mg PO DAILY 12/20/20 12/20/20 History mirtazapine 15 mg PO HS 12/20/20 12/20/20 History Patient History Medical History CAD (coronary artery disease) Carotid artery stenosis s/p L CEA Cerebral vascular disease hx of small cerebellar lacunar infarct, R occipital infarct COPD (chronic obstructive pulmonary disease) HLD (hyperlipidemia) HTN (hypertension) 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 Surgical History H/O angioplasty L subclavian stent History of carpal tunnel release History of coronary artery bypass graft x 3 2010 [place] History of surgery on extremity Femur surgery s/p fracture History of transurethral resection of prostate Family History Father , 58 Myocardial infarction 58 Mother Alzheimer disease Social History Smoking Status: Former smoker Tobacco Type: Cigarettes packs per day: 1.5; Years Smoked: 40; Hx Alcohol Use: Yes Hx Substance Use: No Preferred Language: Thai Communication Ability: Effective marital status: Current Living Situation: Spouse current occupational status: retired Feels Safe at Home: Yes Review of Systems Review of Systems: All systems reviewed & are unremarkable except as noted in HPI & below Physical Exam Physical Exam: Physical Exam: Constitutional: appearance nourished, thin Ears, Nose, Mouth and Throat: mucous membranes moist, no injection and skin normal, eyes normal Cardiovascular: normal S-1 and S-2 and regular rate and rhythm Respiratory: course breath sounds Musculoskeletal: no peripheral edema Skin: neurocutaneous disease hands left hand wrapped Eyes: extraocular muscles intact (EOMI) and pupils equal, round and reactive to light (PERRL) NEUROLOGIC EXAMINATION: Mental status: Alert and interactive Oriented [place], not year of month thinks its March, does not know hospital name. Oriented to person Speech fluent with no evidence of aphasia Cranial Nerves slight asymmetry naso labial fold on left Reflexes: Deep tendon reflexes were symmetrical and graded 2/5. Sensory: light cool intact Coordination: finger to nose on right intact, left dysmetric, heel to turcios slight dysmetric on left Gait/Stance: Posture lying in bed Motor: left side drift without pronation Strength: hand dietician biceps triceps right 5/5, left 4/5, hip flex bilaterally 5/5, plantar flex ext 5/5 bilaterally Results & Data ([facility]) Vital Signs (Past 12 Hours) Vital Signs Temp Pulse Pulse Resp BP BP Pulse Ox 12/20/20 11:00 87 18 179/97 H 96 12/20/20 09:51 79 18 157/78 H 96 12/20/20 09:30 79 17 157/74 H 12/20/20 09:09 80 24 159/73 H 93 12/20/20 09:00 82 21 92 12/20/20 08:30 89 24 94 12/20/20 08:23 89 20 93 12/20/20 08:22 90 21 159/79 H 94 12/20/20 08:19 36.9 C 89 14 159/79 H 94 Laboratory Results Abnormal lab results 12/20/20 12/20/20 12/20/20 Range/Units 08:00 08:00 09:25 [place] # (Auto) 0.81 H (0.11-0.59) K/uL Immature Gran # (Auto) 0.04 H (0.00-0.02) K/uL Chloride 109 H (98-107) mmol/L BUN 27 H (7-18) mg/dl BUN/Creatinine Ratio 24.6 H (10-20) Ur Specific [place] 1.045 H (1.000-1.030) Diagnostic Findings CT head- No acute intracranial abnormality. Old lacunar infarcts seen within the bilateral cerebellar hemispheres. CTA head-No significant stenosis, occlusion, or aneurysm within the [place]. CTA neck-Moderately extensive calcific atheromatous plaque 40% diameter stenosis of the origin of the right internal carotid artery, and 40% diameter stenosis in the proximal left common carotid artery. No evidence of high-grade carotid stenosis. 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 Multifocal right vertebral artery stenosis due to facet and uncovertebral joint disease. (1) Fall Encounter type: initial encounter Qualified Code(s): W19.XXXA - Unspecified fall, initial encounter
[2020-12-20] MEDS: CLOPIDOGREL BISULFATE 75 MG TAB PO SCH (16:00)
[2020-12-20] MEDS: ATORVASTATIN 40 MG TAB PO SCH (16:01)
[2020-12-20] MEDS ORDERED: GADOBUTROL 65ML VIAL IV ONE (16:51)
--- NOTE | 2020-12-20 18:25 | Magnetic Resonance Report ---
MR brain wo/w con HISTORY: 89 years-old Male stroke like sx acute strokelike symptoms COMPARISON: Head CT, CTA head and neck 12/20/2020 TECHNIQUE: Multiplanar multisequence MRI of the brain was obtained both with and without the use of 6 .0 mL Gadavist FINDINGS: Program Development Specialist localizer images demonstrate no gross extracranial abnormality. Small linear areas (approximate ly 5 total) of restricted diffusion are noted within the right frontal, parietal and temporal lobes a nd insula measuring up to 1.6 cm. These areas demonstrate mildly increased T2/FLAIR signal with decre ased signal on the ADC map. No acute intracranial hemorrhage, midline shift, abnormal extra-axial col lection, hydrocephalus or intracranial mass. Age-related involutional changes. Moderate T2/FLAIR hype rintensities throughout the white matter suggest chronic microvascular ischemic disease. Chronic lacu pilar infarcts of the cerebellar hemispheres. No abnormal intra-axial or extra-axial enhancement. The cerebral venous sinuses and major arterial flow voids appear patent. Prior bilateral lens repair. Mastoid air cells are clear. Rightward bowing and spurring of the nasal septum. Mild mucosal thicken ing of the ethmoid air cells. IMPRESSION: 1. There are several small acute infarcts measuring less than 2 cm within the right MCA territory as above. 2. No acute intracranial hemorrhage or midline shift. 3. Age-related involutional changes with moderate chronic microvascular ischemic disease. 3. No abnormal enhancement. 4. 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 ACT 112: Negative or not required by law. The above report was generated using voice recognition software. It may contain grammatical, syntax o r spelling errors. Electronically signed by: Jin Landrum M.D. 12/20/2020 6:24 PM
[2020-12-20] MEDS: MIRTAZAPINE TAB 15 MG TAB PO SCH (20:19)
[2020-12-20] MEDS: ACETAMINOPHEN 325 MG TAB PO PRN (20:27)
--- NOTE | 2020-12-21 06:09 | Electrocardiogram Report ---
Test Reason : Blood Pressure : / mmHG Vent. Rate : 087 BPM Atrial Rate : 087 BPM P-R Int : 268 ms QRS Dur : 094 ms QT Int : 384 ms P-R-T Axes : 000 069 004 degrees QTc Int : 462 ms Sinus rhythm with 1st degree A-V block Low voltage QRS Prolonged QT Abnormal ECG No previous ECGs available Confirmed by Kirt Jason ([id number]) on 12/21/2020 6:08:51 AM Referred By: REFERRED SELF Confirmed By:Kirt Jason
[2020-12-21 06:18] LABS: Basophils # (auto) 0.02 K/uL (0-0.2); Basophils % (auto) 0.3 %; Eosinophils # (auto) 0.17 K/uL (0-0.5); Eosinophils % (auto) 2.6 %; Hematocrit (blood only) 40.8 % (42-52); Hemoglobin 13.9 g/dL (14.0-18.0); Immature Granulocytes # (auto) 0.01 K/uL (0.00-0.02); Immature Granulocytes % (auto) 0.2 %; Lymphocytes # (auto) 1.39 K/uL (1.2-3.4); Lymphocytes % (auto) 21.2 %; Mean Corpuscular Hemoglobin 31.8 pg (25-34); Mean Corpuscular Hgb Conc 34.1 g/dL (32-36); Mean Corpuscular Volume 93.4 fL (80-100); Mean Platelet Volume 8.7 fL (7.4-10.4); Monocytes # (auto) 0.97 K/uL (0.11-0.59); Monocytes % (auto) 14.8 %; Neutrophils % (auto) 60.9 %; Platelet Count 206 K/uL (130-400); RDW Coefficient of Variation 12.9 % (11.5-14.5); RDW Standard Deviation 44.2 fL (36.4-46.3); Red Blood Count 4.37 M/uL (4.7-6.1); White Blood Count 6.56 K/uL (4.8-10.8)
[2020-12-21 06:20] LABS: Estimated Average Glucose 117 mg/dl; Hemoglobin A1C 5.7 % (4.5-5.6)
--- NOTE | 2020-12-21 06:26 | Electrocardiogram Report ---
Test Reason : Blood Pressure : / mmHG Vent. Rate : 083 BPM Atrial Rate : 083 BPM P-R Int : 258 ms QRS Dur : 098 ms QT Int : 398 ms P-R-T Axes : 083 073 008 degrees QTc Int : 467 ms Sinus rhythm with 1st degree A-V block Low voltage QRS Nonspecific T wave abnormality When compared with ECG of 20-DEC-2020 08:17, No significant change Confirmed by Kirt Jason ([id number]) on 12/21/2020 6:26:22 AM Referred By: REFERRED SELF Confirmed By:Kirt Jason
[2020-12-21 06:45] LABS: BUN Creatinine Ratio 20.9 (10-20); Calcium 8.5 mg/dl (8.5-10.1); Est GFR (African American) 89.5; Est GFR (Non-African American) 77.3; Potassium 3.9 mmol/L (3.5-5.1)
[2020-12-21] MEDS ORDERED: PNEUMOCOCCAL Polysaccharide Vaccine 25mcg/0.5mL vial/Syr IM ONE (08:00)
[2020-12-21] MEDS: ATORVASTATIN 40 MG TAB PO SCH (08:39)
[2020-12-21] MEDS: CLOPIDOGREL BISULFATE 75 MG TAB PO SCH (08:39)
[2020-12-21] MEDS: METOPROLOL SUCC 25MG EXT REL TAB PO SCH (08:39)
[2020-12-21] MEDS ORDERED: INFLUENZA ADMINISTRATION CHARGE ONE (09:00)
[2020-12-21] MEDS ORDERED: INFLUENZA VACCINE HIGH DOSE 65+ 0.7 ML SYR IM ONE (09:00)
--- NOTE | 2020-12-21 15:28 | Neurology Progress Note ---
Date of Service December 21, 2020 Assessment & Plan (1) Left-sided weakness: 1. CT head- old strokes- MRI brain - new infarcts right MCA territory 2. CTA head and neck no significant stenosis 3. continue plavix 75 mg for now- history of bleed on aspirin in past 4. PT/OT for discharge needed- will likely need rehab prior to return home 5. permissive HTN for now but then optimize HTN, HLD, LDL <70- consider patient age 6. TTE- EF 60-65% no ASD 7. ZIO as outpatient 8. follow up with neurology 4- 6 weeks after discharge from rehab. (2) Fall: 1. monitor hand - injury (3) Late onset Alzheimer dementia: 1. may have some hospital delirium 2. already on remeron 15 mg hs 3. watch for Admission and Anticipated Discharge Date Admission Date: December 21, 2020 Supervising Physician Co-Signing Physician Notes I have seen and discussed above patient with Dr Cherri Turk, neurology. Patient seen and examined discussed with Cherri Estrada. MRI shows a patchy right MCA infarction. There is no high-grade stenosis of the carotid arteries. There is no atrial dysrhythmia and echo is fairly noncontributory. Patient has no complaints. He reports ongoing weakness in the left upper extremity. He is awake and alert no facial droop speech is nondysarthric there is no field cut. Left upper extremity is best for with dystaxia and left upper extremity consistent with weakness lower extremities appear to be essentially symmetric Impression right MCA infarction plan continue Plavix, patient has had adverse effects on aspirin. Recommend good control of lipids with a goal LDL of 70 or less. Gradual reduction of blood pressure normotension. Recommend a Zio patch as an outpatient as this could be an embolic infarction. The patient should see us in follow-up post discharge. Patient will likely need inpatient physical therapy. 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 He woke got out of bed and sustained a fall with a cut to his dorsal aspect of left hand. He had left-sided weakness and was unable to get up or ambulate. Stroke alert was called but he was outside the TPA window. There was still some residual left-sided weakness but no other focal neuro deficit. He was also having some mild dizziness especially with sitting forward but denies any syncope. He has difficulty with memory. Wifes report - he was hunched over and leaning over the bed. Both of his legs were weak and he was having difficulty walking. He was also having left-sided arm weakness and needed help walking into the bathroom. She tried to help him into the bathroom and when he reached for the door he fell and cut open his left hand and was bleeding. He is sitting bedside using the urinal. He knows his left arm is "not working right". He doesn't want to go home until he is back to his baseline. denies CP, SOB, abdominal pain, +left arm dysmetric Review of Systems Review of Systems: All systems reviewed & are unremarkable except as noted in HPI & below Physical Exam Physical Exam: Physical Exam: Constitutional: appearance nourished, healthy and thin Ears, Nose, Mouth and Throat: mucous membranes moist, no injection and skin normal, eyes normal Cardiovascular: normal S-1 and S-2 and regular rate and rhythm Respiratory: course breath sounds Musculoskeletal: no peripheral edema and good distal pulses Skin: no stigmata of neurocutaneous disease noted and normal and intact Eyes: extraocular muscles intact (EOMI) and pupils equal, round and reactive to light (PERRL) NEUROLOGIC EXAMINATION: Mental status: Alert and interactive Oriented does not know hospital name, does not know he is in [place], can identify, pen -write with it, button, thumb Oriented to person Speech fluent with no evidence of aphasia Cranial Nerves smile eye brow raise symmetric, slight flattening nasolabial fold on left Reflexes: Deep tendon reflexes were symmetrical and graded 2/5. 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 triceps right 5/5, left 4/5, hip flex plantar patellar flex ext 5/5 bilaterally Results & Data ([facility]) Vital Signs (Past 12 Hours) Vital Signs Temp Pulse Pulse Resp BP BP Pulse Ox 12/21/20 11:18 36.5 C 79 17 170/73 H 94 12/21/20 08:00 83 12/21/20 07:07 36.5 C 87 20 166/76 H 96 12/21/20 04:28 36.4 C L 73 18 148/70 H 93 Laboratory Results Abnormal lab results 12/21/20 12/21/20 12/21/20 Range/Units 05:52 05:52 05:52 RBC 4.37 L (4.7-6.1) M/uL Hgb 13.9 L (14.0-18.0) g/dL Hct 40.8 L (42-52) % [place] # (Auto) 0.97 H (0.11-0.59) K/uL Chloride 109 H (98-107) mmol/L BUN/Creatinine Ratio 20.9 H (10-20) Hemoglobin A1c 5.7 H (4.5-5.6) % Diagnostic Findings MRI brain- There are several small acute infarcts measuring less than 2 cm within the right MCA territory. No acute intracranial hemorrhage or midline shift. Age-related involutional changes with moderate chronic microvascular ischemic disease. No abnormal enhancement. 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 (1) Fall Encounter type: initial encounter Qualified Code(s): W19.XXXA - Unspecified fall, initial encounter
--- NOTE | 2020-12-21 16:47 | Hospitalist Progress Note ---
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 Acute CVA Right MCA territory High-grade stenosis of right vertebral artery --MRI Brain:There are several small acute infarcts measuring less than 2 cm within the right MCA territory as above. No acute intracranial hemorrhage or midline shift. Age-related involutional changes with moderate chronic microvascular ischemic disease. No abnormal enhancement. 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 -Neck CTA:Moderately extensive calcific atheromatous plaque. 40% diameter stenosis of the origin of the right internal carotid artery, and 40% diameter stenosis in the proximal left common carotid artery. No evidence of high-grade carotid stenosis. 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 Multifocal right vertebral artery stenosis due to facet and uncovertebral joint disease. -ECHO reviewed -H/O Aspirin Intolerance-- leaving to GI bleed -Continue Plavix, statin -Appreciate neurology input -Needs Zio patch as outpatient -Needs follow-up with neurology upon discharge -Continue PT/OT (3) Dehydration, mild: Resolved Received gentle IV fluids Monitor (4) Skin tear of left hand without complication: consult wound care for dressing placement (5) Poor dentition: Had 2 teeth fall out 1 week ago hx of dental abscess in past requiring extractions - concerned about infection No signs of acute infection Has Dental appt next week overall poor appetite due to inability to chew consult 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 Dial in [place] continue statin, Plavix, metoprolol not on ASA 2/2 to hx of bleeding ulcer - Was on 325mg asa (7) HTN (hypertension): Allow permissible HTN for 24hrs unless negative CVA on MRI continue metoprolol Adjust medications as needed (8) COPD (chronic obstructive pulmonary disease): no signs of acute exacerbation hx of tobacco abuse PRN duoneb Prediabetes HbA1c 5.7 (9) DVT prophylaxis: Heparin SQ CODE STATUS FULL CODE Disposition Plan to discharge to rehab facility when arranged Case management consulted Admission and Anticipated Discharge Date Admission Date: December 21, 2020 Subjective Patient is seen and examined at bedside Dizziness much improved today Had physical therapy earlier today Complains of left upper extremity weakness more than left lower extremity Updated patient's family over the phone Denies chest pain, dyspnea, nausea, vomiting, abdominal pain Review of Systems Review of Systems: All systems reviewed & are unremarkable except as noted in HPI & below Physical Exam Physical Exam: Physical Exam: Vitals signs as noted above General Appearance:Thin, frail, no apparent distress Head: normocephalic, Atraumatic Eyes: normal inspection, EOMI Neck: supple, Trachea midline Respiratory/Chest: Decreased breath sounds, CTA, No accessory muscle use Cardiovascular: S1, S2, No murmur Abdomen/GI:Soft, Non tender, Bowel sounds present Extremities/Musculoskelatal:normal inspection, no edema Neurologic/Psych:AAOX3, LUE, LLE weakness--4/5 (LUE> LLE) Skin: normal color, warm Results & Data Results & Data ([facility]) Vital Signs (Past 12 Hours) Vital Signs Temp Pulse Pulse Resp BP BP Pulse Ox 12/21/20 15:26 36.4 C L 83 20 167/77 H 93 12/21/20 11:18 36.5 C 79 17 170/73 H 94 12/21/20 08:00 83 12/21/20 07:07 36.5 C 87 20 166/76 H 96 Laboratory Results Short CBC 12/21/20 Range/Units 05:52 WBC 6.56 (4.8-10.8) K/uL Hgb 13.9 L (14.0-18.0) g/dL Hct 40.8 L (42-52) % Plt Count 206 (130-400) K/uL BMP 12/21/20 05:52 Sodium 145 Potassium 3.9 Chloride 109 H Carbon Dioxide 31 BUN 18 Creatinine 0.85 Glucose 85 Calcium 8.5 (1) HTN (hypertension) Hypertension type: unspecified Qualified Code(s): I10 - Essential (primary) hypertension
[2020-12-21] MEDS: MIRTAZAPINE TAB 15 MG TAB PO SCH (19:05)
[2020-12-21] MEDS: HEPARIN SOD 5,000 UNIT/0.5 ML VIAL SQ SCH (21:02)
[2020-12-21] MEDS ORDERED: SODIUM CHLOR 0.45% + 20MEQ KCL 20 MEQ/1,000 ML BAG IV ONE (21:15)
[2020-12-21] MEDS: OLANZapine 10 MG/2.1 ML SDV IM PRN (21:48)
[2020-12-21] MEDS: ACETAMINOPHEN 325 MG TAB PO PRN (23:29)
[2020-12-22] MEDS ORDERED: FAMOTIDINE 20 MG in SYRINGE 3 ML IV STA (00:46)
[2020-12-22 01:01] LABS: Basophils # (auto) 0.01 K/uL (0-0.2); Basophils % (auto) 0.1 %; Eosinophils # (auto) 0.13 K/uL (0-0.5); Eosinophils % (auto) 1.6 %; Hematocrit (blood only) 43.9 % (42-52); Immature Granulocytes # (auto) 0.02 K/uL (0.00-0.02); Immature Granulocytes % (auto) 0.2 %; Lymphocytes # (auto) 1.25 K/uL (1.2-3.4); Mean Corpuscular Hemoglobin 31.6 pg (25-34); Mean Corpuscular Hgb Conc 34.2 g/dL (32-36); Mean Corpuscular Volume 92.4 fL (80-100); Mean Platelet Volume 8.8 fL (7.4-10.4); Monocytes # (auto) 1.11 K/uL (0.11-0.59); Monocytes % (auto) 13.3 %; Neutrophils % (auto) 69.8 %; Platelet Count 214 K/uL (130-400); RDW Coefficient of Variation 12.8 % (11.5-14.5); RDW Standard Deviation 43.2 fL (36.4-46.3); Red Blood Count 4.75 M/uL (4.7-6.1); White Blood Count 8.32 K/uL (4.8-10.8)
[2020-12-22 01:11] LABS: Partial Thromboplastin Ratio 1.1; Partial Thromboplastin Time 29.1 Seconds (21.0-31.0)
[2020-12-22 01:20] LABS: Albumin Level 3.5 gm/dl (3.4-5.0); BUN Creatinine Ratio 18.3 (10-20); Creatinine Clr Calc Pharmacy 40.6 ml/min; Est GFR (African American) 87.5; Est GFR (Non-African American) 75.5; Magnesium 2.1 mg/dl (1.8-2.4)
[2020-12-22 01:24] LABS: Albumin Globulin Ratio 1.2 (0.9-2); Bilirubin,Total 1.1 mg/dl (0.2-1); Globulin 2.9 gm/dl (2.5-4.0); Total Protein 6.4 gm/dl (6.4-8.2); Troponin I 0.031 ng/ml (0-0.045)
[2020-12-22] MEDS: OLANZapine 10 MG/2.1 ML SDV IM PRN (03:10)
[2020-12-22] MEDS: HEPARIN SOD 5,000 UNIT/0.5 ML VIAL SQ SCH ×2 (07:41→21:01)
[2020-12-22] MEDS: METOPROLOL SUCC 25MG EXT REL TAB PO SCH (07:42)
[2020-12-22] MEDS: ATORVASTATIN 40 MG TAB PO SCH (07:42)
[2020-12-22] MEDS: CLOPIDOGREL BISULFATE 75 MG TAB PO SCH (07:42)
--- NOTE | 2020-12-22 11:44 | Hospitalist Progress Note ---
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 Acute CVA Right MCA territory High-grade stenosis of right vertebral artery -MRI Brain:There are several small acute infarcts measuring less than 2 cm within the right MCA territory as above. No acute intracranial hemorrhage or midline shift. Age-related involutional changes with moderate chronic microvascular ischemic disease. No abnormal enhancement. 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 -Neck CTA:Moderately extensive calcific atheromatous plaque. 40% diameter stenosis of the origin of the right internal carotid artery, and 40% diameter stenosis in the proximal left common carotid artery. No evidence of high-grade carotid stenosis. 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 Multifocal right vertebral artery stenosis due to facet and uncovertebral joint disease. -ECHO reviewed -H/O Aspirin Intolerance causing GI bleed Neurologist recommendation appreciated Continue Plavix, statin Needs Zio patch as outpatient We will follow-up with neurology in 4 to 6 weeks PT/OT evaluation noted. Inpatient rehab recommended. Patient was on one-to-one due to being confused overnight. Likely delirium in the setting of known dementia. Continue redirection. Plan to get off one-to-one and possible discharge to rehab tomorrow (3) Dehydration, mild: Resolved Discontinue IV fluid (4) Skin tear of left hand without complication: Continue dressing (5) Poor dentition: Had 2 teeth fall out 1 week ago hx of dental abscess in past requiring extractions - concerned about infection No signs of acute infection Has Dental appt next week Nutritional recommendations noted Diet has been changed to easy to chew Patient also has moderate malnutrition from physical exam showing bony prominences, muscle wasting and noted loss of weight on chart review (6) CAD (coronary artery disease): H/O CABG x 3 h/O Subclavian artery stenosis s/p stent Follows [facility] Dr. Dial in [place] continue statin, Plavix, metoprolol not on ASA 2/2 to hx of bleeding ulcer - Was on 325mg asa (7) HTN (hypertension): Continue metoprolol Adjust medications as needed (8) COPD (chronic obstructive pulmonary disease): No exacerbation hx of tobacco abuse PRN duoneb Prediabetes HbA1c 5.7 (9) DVT prophylaxis: Heparin SQ CODE STATUS FULL CODE Disposition Plan to discharge to rehab facility when arranged Case management on board When I called daughter to update her, she reported she will like patient transferred to [facility]. She stated that her reasons include: -Patient got more confused last time they spoke and they were concerned about deterioration -Patient's family works at [facility] and the family lives close and will be able to visit -She stated patient gets his care there and will like that for continuity of care She confirmed patient has had mild memory deficits but has not been officially diagnosed of alzheimers I explained that patient had delirium episode which is not uncommon in patient with MCI and CVA There is no medical necessity for transfer at this time. However, she will like to transfer She also spoke with Dr Rani Callaway who accepted. I called Dr Callaway. We discussed the patient in details. She accepted patient Called [facility] call center and started transfer process Admission and Anticipated Discharge Date Admission Date: December 21, 2020 Subjective Patient seen and examined. Patient denies any complaints Denies any chest pain, shortness of breath, cough. Denies nausea, vomiting, anorexia or abdominal pain Physical Exam Constitutional: + well hydrated; no acute distress Thin elderly man Eyes: PERRL, conjunctivae normal, anicteric sclerae ENMT: external ear and nose normal, oropharynx normal Respiratory: normal respiratory effort, lungs clear to auscultation Cardiovascular: Rate/Rhythm: regular rate and regular rhythm S1-S2 Gastrointestinal (Abdomen): normal bowel sounds, soft, nontender, no hepatosplenomegaly Musculoskeletal: No pedal edema Neurologic: PERRL, EOMI, accommodation nl, no face palsy, no dysarthria Power is 4/5 on left upper and lower extremities Psychiatric: Alert and oriented to person and place only Results & Data Results & Data ([facility]) Vital Signs (Past 12 Hours) Vital Signs Temp Pulse Pulse Pulse Resp BP Pulse Ox 12/22/20 08:00 36.4 C L 77 18 101/71 95 12/22/20 04:00 36.7 C 94 H 18 128/68 93 12/22/20 00:00 88 Laboratory Results Laboratory Results - last 24 hr 12/21/20 12/22/20 12/22/20 21:48 00:50 00:50 WBC 8.32 RBC 4.75 Hgb 15.0 Hct 43.9 MCV 92.4 MCH 31.6 MCHC 34.2 RDW Std Deviation 43.2 RDW Coeff of Ken 12.8 Plt Count 214 MPV 8.8 Immature Gran % (Auto) 0.2 Neut % (Auto) 69.8 Lymph % (Auto) 15.0 Blount % (Auto) 13.3 Eos % (Auto) 1.6 Baso % (Auto) 0.1 Neut # (Auto) 5.80 Lymph # (Auto) 1.25 Blount # (Auto) 1.11 H Eos # (Auto) 0.13 Baso # (Auto) 0.01 Immature Gran # (Auto) 0.02 APTT 29.1 PTT Ratio 1.1 Sodium Potassium Chloride Carbon Dioxide Anion Gap BUN Creatinine Est Cr Clr Drug Dosing Est GFR ( Amer) Est GFR (Non-Af Amer) BUN/Creatinine Ratio Glucose POC Glucose 89 Calcium Magnesium Total Bilirubin AST ALT Alkaline Phosphatase Troponin I Total Protein Albumin Globulin Albumin/Globulin Ratio 12/22/20 00:50 WBC RBC Hgb Hct MCV MCH MCHC RDW Std Deviation RDW Coeff of Ken Plt Count MPV Immature Gran % (Auto) Neut % (Auto) Lymph % (Auto) Blount % (Auto) Eos % (Auto) Baso % (Auto) Neut # (Auto) Lymph # (Auto) Blount # (Auto) Eos # (Auto) Baso # (Auto) Immature Gran # (Auto) APTT PTT Ratio Sodium 141 Potassium 4.0 Chloride 106 Carbon Dioxide 29 Anion Gap 7.0 BUN 17 Creatinine 0.90 Est Cr Clr Drug Dosing 40.6 Est GFR ( Amer) 87.5 Est GFR (Non-Af Amer) 75.5 BUN/Creatinine Ratio 18.3 Glucose 84 POC Glucose Calcium 9.0 Magnesium 2.1 Total Bilirubin 1.1 H D AST 43 H ALT 43 Alkaline Phosphatase 89 Troponin I 0.031 Total Protein 6.4 Albumin 3.5 Globulin 2.9 Albumin/Globulin Ratio 1.2 (1) HTN (hypertension) Hypertension type: unspecified Qualified Code(s): I10 - Essential (primary) hypertension
[2020-12-22] MEDS ORDERED: STROKE PATIENT DISCHARGE STA (16:08)
[2020-12-22] MEDS: MIRTAZAPINE TAB 15 MG TAB PO SCH (21:01)
--- NOTE | 2020-12-23 05:53 | Electrocardiogram Report ---
Test Reason : Blood Pressure : / mmHG Vent. Rate : 091 BPM Atrial Rate : 091 BPM P-R Int : 246 ms QRS Dur : 092 ms QT Int : 372 ms P-R-T Axes : 082 073 019 degrees QTc Int : 457 ms Sinus rhythm with 1st degree A-V block Possible Septal infarct , age undetermined Abnormal ECG When compared with ECG of 20-DEC-2020 11:16, No significant change was found Confirmed by Kirt Jason ([id number]) on 12/23/2020 5:53:28 AM Referred By: REFERRED SELF Confirmed By:Kirt Jason
[2020-12-23] MEDS: HEPARIN SOD 5,000 UNIT/0.5 ML VIAL SQ SCH ×2 (08:23→20:51)
[2020-12-23] MEDS: ATORVASTATIN 40 MG TAB PO SCH (08:24)
[2020-12-23] MEDS: METOPROLOL SUCC 25MG EXT REL TAB PO SCH (08:24)
[2020-12-23] MEDS: CLOPIDOGREL BISULFATE 75 MG TAB PO SCH (08:25)
--- NOTE | 2020-12-23 11:23 | Cardiology Consultation ---
Date of Consultation December 23, 2020 Assessment & Plan (1) Sinus pause: (2) Left-sided weakness: (3) Fall: (4) Vertebral artery stenosis: (5) History of coronary artery bypass graft x 3: (6) Late onset Alzheimer dementia: (7) Cerebral vascular disease: (8) HTN (hypertension): (9) HLD (hyperlipidemia): (10) CAD (coronary artery disease): It was my pleasure to see Mr. Zaldivar in cardiac consultation today. The patient did have asymptomatic pauses on telemetry that occurred while he was eating breakfast. I am suspicious that this may have been a vagal response to choking I do not believe this represents sick sinus syndrome. We will continue to monitor on telemetry overnight and decrease metoprolol succinate dose to 12.5 mg p.o. daily. We then recommend continue to follow-up with primary paper and prints restorer and likely outpatient telemetry monitoring. No other medication changes were made at this time. History of Present Illness Reason for Consultation: sinus pause Requesting Physician: Dr. Lipscomb Attending Physician: Karey Lipscomb MD History of Present Illness Was my pleasure to see Mr. Zaldivar in cardiac consultation today. He is a very pleasant yet demented 89-year-old gentleman who normally follows with [place] [facility]. He presented to [facility] on 12/20/2020 with complaints of left-sided weakness. He was seen by neurology and appropriate treatment was initiated. On the morning of 12/13/2020 while eating breakfast he had an asymptomatic pause on telemetry monitoring and cardiology was asked to see him. From a cardiac standpoint he denies any complaints of chest pain, shortness of breath, palpitations, lightheadedness, dizziness or syncope. 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, continue Plavix, Statin CORONARY ARTERY DISEASE - s/p 3V CABG 2010, normal nuclear 03/19, with ESCUDERO, weight loss, fatigue, will check stress testing, continue Statin/BB/plavix, continue risk factor modification with diet and exercise HYPERLIPIDEMIA - with clinical ASCVD, continue Lipitor CAROTID ARTERY STENOSIS- s/p left CEA in 2010, mild disease right ICA, continue Statin/ASA Allergies Allergy/AdvReac Type Severity Reaction Status Date / Time salicylates AdvReac Severe GIB Verified 12/20/20 10:42 povidone-iodine AdvReac Mild rash Verified 12/20/20 10:42 [From Betadine] soap [From Betadine] AdvReac Mild rash Verified 12/20/20 10:42 bacitracin AdvReac Unknown Verified 12/20/20 10:42 [From Neosporin ([id number])] neomycin AdvReac Unknown Verified 12/20/20 10:42 [From Neosporin ([id number])] polymyxin B AdvReac Unknown Verified 12/20/20 10:42 [From Neosporin ([id number])] Home Medications Medication Instructions Recorded Confirmed Type atorvastatin 40 mg PO DAILY 12/20/20 12/20/20 History clopidogrel [Plavix] 75 mg PO DAILY 12/20/20 12/20/20 History metoprolol succinate 25 mg PO DAILY 12/20/20 12/20/20 History mirtazapine 15 mg PO HS 12/20/20 12/20/20 History Fiber (dextrin) 2 tsp PO DAILY 12/21/20 12/21/20 History Patient History Medical History CAD (coronary artery disease) Carotid artery stenosis s/p L CEA Cerebral vascular disease hx of small cerebellar lacunar infarct, R occipital infarct COPD (chronic obstructive pulmonary disease) HLD (hyperlipidemia) HTN (hypertension) 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 Surgical History H/O angioplasty L subclavian stent History of carpal tunnel release History of coronary artery bypass graft x 3 2010 [place] History of surgery on extremity Femur surgery s/p fracture History of transurethral resection of prostate Family History Father , 58 Myocardial infarction 58 Mother Alzheimer disease Social History Smoking Status: Unknown if ever smoked Tobacco Type: Cigarettes packs per day: 1.5; Years Smoked: 40; Second Hand Exposure: No; Do You Dip or Chew Tobacco: No; Tobacco Cessation Education Requested by Patient: No Hx Alcohol Use: No Hx Substance Use: No Preferred Language: Lithuanian Communication Ability: Effective Etiquette Teacher Required: No Beliefs That Will Affect Care: None marital status: Current Living Situation: Spouse current occupational status: retired Other Information That Helps Us Care for You: No Feels Safe at Home: Yes Safety Concerns: Feels Safe At This Time Assistive Devices: None Review of Systems Review of Systems: All systems reviewed & are unremarkable except as noted in HPI & below Physical Exam Physical Exam: General: Awake, alert and oriented x 3. No acute distress. HEENT: Normocephalic, atraumatic. Pupils equal, round and reactive to light and accommodation. Extraocular muscles are intact. Anicteric sclera. Moist mucous membranes. Neck: No JVD. No bruit. Cardiovascular: Regular. Positive S-4. Normal S-1 and S-2. No S-3. 3/6 mid to late systolic ejection murmur, greatest at the right sternal border, second intercostal space with radiation to the bilateral carotids. No rubs. Pulmonary: Clear to auscultation bilaterally. No rales, rhonchi, or wheezing. Abdomen: Bowel sounds x 4, soft. No rebound, guarding or tenderness. No organomegaly. Extremities: No clubbing, cyanosis or edema. +2 pedal pulses bilaterally. Skin: Warm and dry. Results & Data ([facility]) Vital Signs (Past 12 Hours) Vital Signs Temp Pulse Pulse Resp BP Pulse Ox 12/23/20 08:00 77 12/23/20 07:10 36.9 C 83 18 147/68 H 94 12/23/20 03:27 36.7 C 64 17 118/68 93 12/22/20 23:22 37.4 C 76 18 138/70 96 Laboratory Results Laboratory Results - last 72 hr 12/20/20 12/21/20 12/21/20 10:45 05:52 05:52 WBC 6.56 RBC 4.37 L Hgb 13.9 L Hct 40.8 L MCV 93.4 MCH 31.8 MCHC 34.1 RDW Std Deviation 44.2 RDW Coeff of Ken 12.9 Plt Count 206 MPV 8.7 Immature Gran % (Auto) 0.2 Neut % (Auto) 60.9 Lymph % (Auto) 21.2 Clay % (Auto) 14.8 Eos % (Auto) 2.6 Baso % (Auto) 0.3 Neut # (Auto) 4.00 Lymph # (Auto) 1.39 Clay # (Auto) 0.97 H Eos # (Auto) 0.17 Baso # (Auto) 0.02 Immature Gran # (Auto) 0.01 APTT PTT Ratio Sodium 145 Potassium 3.9 Chloride 109 H Carbon Dioxide 31 Anion Gap 5.0 BUN 18 Creatinine 0.85 Est Cr Clr Drug Dosing 43.0 Est GFR ( Amer) 89.5 Est GFR (Non-Af Amer) 77.3 BUN/Creatinine Ratio 20.9 H Glucose 85 POC Glucose Estimat Average Glucose Hemoglobin A1c Calcium 8.5 Magnesium Total Bilirubin AST ALT Alkaline Phosphatase Troponin I Total Protein Albumin Globulin Albumin/Globulin Ratio Triglycerides 81 Cholesterol 136 LDL Cholesterol, Calc 63 VLDL Cholesterol, Calc 16 HDL Cholesterol 57 Cholesterol/HDL Ratio 2 SARS-CoV-2, RNA, NAAT NEGATIVE 12/21/20 12/21/20 12/22/20 05:52 21:48 00:50 WBC 8.32 RBC 4.75 Hgb 15.0 Hct 43.9 MCV 92.4 MCH 31.6 MCHC 34.2 RDW Std Deviation 43.2 RDW Coeff of Ken 12.8 Plt Count 214 MPV 8.8 Immature Gran % (Auto) 0.2 Neut % (Auto) 69.8 Lymph % (Auto) 15.0 Clay % (Auto) 13.3 Eos % (Auto) 1.6 Baso % (Auto) 0.1 Neut # (Auto) 5.80 Lymph # (Auto) 1.25 Clay # (Auto) 1.11 H Eos # (Auto) 0.13 Baso # (Auto) 0.01 Immature Gran # (Auto) 0.02 APTT PTT Ratio Sodium Potassium Chloride Carbon Dioxide Anion Gap BUN Creatinine Est Cr Clr Drug Dosing Est GFR ( Amer) Est GFR (Non-Af Amer) BUN/Creatinine Ratio Glucose POC Glucose 89 Estimat Average Glucose 117 Hemoglobin A1c 5.7 H Calcium Magnesium Total Bilirubin AST ALT Alkaline Phosphatase Troponin I Total Protein Albumin Globulin Albumin/Globulin Ratio Triglycerides Cholesterol LDL Cholesterol, Calc VLDL Cholesterol, Calc HDL Cholesterol Cholesterol/HDL Ratio SARS-CoV-2, RNA, NAAT 12/22/20 12/22/20 00:50 00:50 WBC RBC Hgb Hct MCV MCH MCHC RDW Std Deviation RDW Coeff of Ken Plt Count MPV Immature Gran % (Auto) Neut % (Auto) Lymph % (Auto) Clay % (Auto) Eos % (Auto) Baso % (Auto) Neut # (Auto) Lymph # (Auto) Clay # (Auto) Eos # (Auto) Baso # (Auto) Immature Gran # (Auto) APTT 29.1 PTT Ratio 1.1 Sodium 141 Potassium 4.0 Chloride 106 Carbon Dioxide 29 Anion Gap 7.0 BUN 17 Creatinine 0.90 Est Cr Clr Drug Dosing 40.6 Est GFR ( Amer) 87.5 Est GFR (Non-Af Amer) 75.5 BUN/Creatinine Ratio 18.3 Glucose 84 POC Glucose Estimat Average Glucose Hemoglobin A1c Calcium 9.0 Magnesium 2.1 Total Bilirubin 1.1 H D AST 43 H ALT 43 Alkaline Phosphatase 89 Troponin I 0.031 Total Protein 6.4 Albumin 3.5 Globulin 2.9 Albumin/Globulin Ratio 1.2 Triglycerides Cholesterol LDL Cholesterol, Calc VLDL Cholesterol, Calc HDL Cholesterol Cholesterol/HDL Ratio SARS-CoV-2, RNA, NAAT Medications Administered Current Inpatient Medications Acetaminophen (Acetaminophen 325 Mg Tab) 650 mg PO Q4H PRN PRN Reason: Pain or Fever Stop: 01/19/21 12:50 Last Admin: 12/21/20 23:29 Dose: 650 mg Documented by: Al Hydrox/Mg Hydrox/Simethicone (Aluminum/Magnesium Susp 30 Ml Udc) 15 ml PO Q4H PRN PRN Reason: Dyspepsia Stop: 01/19/21 12:50 Albuterol (Albut/Ipratrop 3mg/0.5mg Neb 3 Ml Vial) 3 ml NEB QIDR PRN PRN Reason: sob/wheezing Stop: 01/19/21 12:50 Atorvastatin Calcium (Atorvastatin 40 Mg Tab) 40 mg PO DAILY [facility] Stop: 01/19/21 12:59 Last Admin: 12/23/20 08:24 Dose: 40 mg Documented by: Clopidogrel Bisulfate (Clopidogrel Bisulfate 75 Mg Tab) 75 mg PO DAILY [facility] Stop: 01/19/21 12:59 Last Admin: 12/23/20 08:25 Dose: 75 mg Documented by: Heparin Sodium (Porcine) (Heparin Sod 5,000 Unit/0.5 Ml Vial) 5,000 units SQ Q12 [facility] Stop: 01/20/21 20:59 Last Admin: 12/23/20 08:23 Dose: 5,000 units Documented by: Magnesium Hydroxide (Magnesium Hydroxide Susp 30 Ml Udc) 30 ml PO Q12H PRN PRN Reason: Constipation Stop: 01/19/21 12:50 Metoprolol Succinate (Metoprolol Succ 25mg Ext Rel Tab) 25 mg PO DAILY [facility] Stop: 01/20/21 08:59 Last Admin: 12/23/20 08:24 Dose: 25 mg Documented by: Mirtazapine (Mirtazapine Tab 15 Mg Tab) 15 mg PO HS [facility] Stop: 01/19/21 20:59 Last Admin: 12/22/20 21:01 Dose: 15 mg Documented by: Olanzapine (Olanzapine 10 Mg/2.1 Ml Sdv) 2.5 mg IM Q4H PRN PRN Reason: Anxiety/Agitation Stop: 01/20/21 21:00 Last Admin: 12/22/20 03:10 Dose: 2.5 mg Documented by: Ondansetron HCl (Ondansetron Inj 2 Mg/Ml 2 Ml Vial) 4 mg IV Q6H PRN PRN Reason: Nausea Stop: 01/19/21 12:50 Polyethylene Glycol (Polyethylene (Miralax) 17 Gm Pack) 17 gm PO DAILY PRN PRN Reason: Constipation Stop: 01/19/21 12:50 (1) Fall Encounter type: initial encounter Qualified Code(s): W19.XXXA - Unspecified fall, initial encounter (2) HTN (hypertension) Hypertension type: unspecified Qualified Code(s): I10 - Essential (primary) hypertension
--- NOTE | 2020-12-23 14:46 | Hospitalist Progress Note ---
Date of Service December 23, 2020 Assessment & Plan (1) Acute left-sided weakness: (2) Vertebral artery stenosis: 89 yr male with H/O CAD with CABG x3 in 2010, HTN, HLD, left subclavian artery stenosis status post stenting, history of cerebrovascular disease with a small bilateral cerebellar infarcts and right occipital infarct, history of carotid artery stenosis status post left CEA, late onset Alzheimer's who presents to ED secondary to left-sided weakness for 1 day duration. Acute CVA Right MCA territory High-grade stenosis of right vertebral artery -MRI Brain:There are several small acute infarcts measuring less than 2 cm within the right MCA territory as above. No acute intracranial hemorrhage or midline shift. Age-related involutional changes with moderate chronic microvascular ischemic disease. No abnormal enhancement. 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 -Neck CTA:Moderately extensive calcific atheromatous plaque. 40% diameter stenosis of the origin of the right internal carotid artery, and 40% diameter stenosis in the proximal left common carotid artery. No evidence of high-grade carotid stenosis. 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 Multifocal right vertebral artery stenosis due to facet and uncovertebral joint disease. -ECHO reviewed -H/O Aspirin Intolerance causing GI bleed Neurologist recommendation appreciated Continue Plavix, statin Had asymptomatic pauses this morning while he was eating. Was evaluated by plisse machine operator helper and his metoprolol dose reduced to 12.5 mg daily Continue senior media planner Needs Zio patch as outpatient We will follow-up with neurology in 4 to 6 weeks PT/OT evaluation noted. Inpatient rehab recommended. Patient was on one-to-one due to being confused overnight. Likely delirium in the setting of known dementia. Continue redirection. Plan to get off one-to-one and possible discharge to rehab tomorrow (3) Dehydration, mild: Resolved Discontinue IV fluid (4) Skin tear of left hand without complication: Continue dressing (5) Poor dentition: Had 2 teeth fall out 1 week ago hx of dental abscess in past requiring extractions - concerned about infection No signs of acute infection Has Dental appt next week Nutritional recommendations noted Diet has been changed to easy to chew Patient also has moderate malnutrition from physical exam showing bony prominences, muscle wasting and noted loss of weight on chart review (6) CAD (coronary artery disease): H/O CABG x 3 h/O Subclavian artery stenosis s/p stent Follows [facility] Dr. Dial in [place] Continue statin, Plavix not on ASA 2/2 to hx of bleeding ulcer - Was on 325mg asa (7) HTN (hypertension): Controlled Adjust medications as needed (8) COPD (chronic obstructive pulmonary disease): No exacerbation hx of tobacco abuse PRN duoneb Prediabetes HbA1c 5.7 (9) DVT prophylaxis: Heparin SQ CODE STATUS FULL CODE Disposition Discussed with daughter. She still wants patient to be transferred to [facility]. lawn service manager working on this and has obtained authorization. Awaiting transfer to [facility] per family request Discussed all findings with patient's daughter and need for outpatient Zio patch testing and neurology follow-up Admission and Anticipated Discharge Date Admission Date: December 21, 2020 Subjective Patient seen and examined Patient is awake and alert, oriented to person and knows he is in the hospital but does not know which one. He was able to tell me that he had a stroke and only complains of left arm and leg weakness. Denies any other symptoms. Patient does have memory deficits but has not been agitated. According to RN, occasionally tries to get out of bed but responds well to redirection. Physical Exam Constitutional: + well hydrated; no acute distress Eyes: PERRL, conjunctivae normal, anicteric sclerae ENMT: external ear and nose normal, oropharynx normal Respiratory: normal respiratory effort, lungs clear to auscultation Cardiovascular: Rate/Rhythm: regular rate and regular rhythm S1-S2 Gastrointestinal (Abdomen): normal bowel sounds, soft, nontender, no hepatosplenomegaly Musculoskeletal: Power is 4/5 on right upper and lower extremities Neurologic: PERRL, EOMI, accommodation nl, no face palsy, no dysarthria Psychiatric: Alert and oriented to person, knows he is in the hospital but does not remember name. Follows commands. Limited insight Results & Data Results & Data ([facility]) Vital Signs (Past 12 Hours) Vital Signs Temp Pulse Pulse Resp BP Pulse Ox 12/23/20 11:14 36.6 C 71 18 123/63 93 12/23/20 08:00 77 12/23/20 07:10 36.9 C 83 18 147/68 H 94 12/23/20 03:27 36.7 C 64 17 118/68 93 (1) HTN (hypertension) Hypertension type: unspecified Qualified Code(s): I10 - Essential (primary) hypertension
[2020-12-23] MEDS: MIRTAZAPINE TAB 15 MG TAB PO SCH (20:51)
[2020-12-24 07:05] LABS: Hematocrit (blood only) 40.6 % (42-52); Hemoglobin 13.8 g/dL (14.0-18.0); Mean Corpuscular Hemoglobin 31.6 pg (25-34); Mean Corpuscular Volume 92.9 fL (80-100); Platelet Count 198 K/uL (130-400); RDW Standard Deviation 44.6 fL (36.4-46.3); Red Blood Count 4.37 M/uL (4.7-6.1); White Blood Count 7.18 K/uL (4.8-10.8)
[2020-12-24] MEDS: ATORVASTATIN 40 MG TAB PO SCH (08:22)
[2020-12-24] MEDS: METOPROLOL SUCC 25MG EXT REL TAB PO SCH (08:23)
[2020-12-24] MEDS: HEPARIN SOD 5,000 UNIT/0.5 ML VIAL SQ SCH (08:24)
[2020-12-24] MEDS: CLOPIDOGREL BISULFATE 75 MG TAB PO SCH (08:40)
--- NOTE | 2020-12-24 11:13 | Discharge Summary ---
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 His last known well was yesterday at approximately 10 PM. He woke up this morning, got out of bed and sustained a fall with a cut to his dorsal aspect of left hand. He experienced left-sided weakness and was unable to get up or ambulate. EMS was summoned and due to left-sided weakness weakness stroke alert was called. Due to patient being out of the TPA window he did not undergo formal stroke alert evaluation by neurology at [facility]. Upon presentation he did still have some residual left-sided weakness but no other focal neuro deficit per ED provider. Patient does complain of some mild dizziness especially with sitting forward but denies any syncope. Except for today's fall he denies any other prior falls. He denies loss of consciousness or hitting his head. He denies recent illness, fever, chills, sweats, change in hearing or vision, difficulty swallowing, chest pain, shortness of breath, cough, nausea, vomiting, abdominal pain, dysuria, increased urgency or frequency with urination, melena or hematochezia. Last BM was yesterday. Patient did not take any of his morning medications. He does state he has difficulty with memory and recommends calling for further information about today's events. states at approximately 7 AM she looked into the bedroom and he was hunched over and leaning over the bed. He stated that he needed help and that he could not move. Both of his legs were weak and he was having difficulty walking. He was also having left-sided arm weakness. He stated he needed to use the bathroom and needed help walking into the bathroom. Unfortunately he did urinate the bed which states he has never done this before. She tried to help him into the bathroom and when he reached for the door he fell and cut open his left hand and was bleeding. He was unable to get up and therefore she called EMS. In ED patient was stroke alert. He did undergo head and neck CTA along with head CT. No acute findings were noted although it did reveal High-grade stenosis of the right vertebral artery origin and multifocal right vertebral artery stenosis due to facet and uncovertebral joint disease. He underwent chest x-ray and CTA of his chest abdomen pelvis to rule out any orthopedic etiology of left-sided weakness which was mostly unremarkable. Lab work did reveal some mild prerenal azotemia but otherwise unremarkable. Given persistent left-sided weakness and difficulty ambulating he was recommended for admission. Admission Exam Per Admitting Provider Constitutional: Elderly, male, thin, vitals as above, NAD, sitting up in bed, pleasant, hard of hearing, answers questions appropriately Head: Normocephalic, Atraumatic Eyes: PERRL, conjunctivae normal, anicteric sclerae ENMT: external ear and nose normal, oropharynx normal Neck: trachea midline, no thyromegaly normal visual inspection Respiratory: Diminished breath sounds throughout, distant breath sounds, poor air exchange, normal respiratory effort, otherwise lungs clear to auscultation, no wheeze, rales, rhonchi. 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 heel varnisher strength on left Skin: Skin tear to dorsum of left hand x2, 2 cm skin tear distal to second and third phalanx, 4 cm skin tear to medial aspect of dorsum of left hand, no rashes, warm and dry mild turgor Neurologic: PERRL, EOMI, accommodation nl, no face palsy, no dysarthria CN's II-XI intact bilaterally and moves all extremities Psychiatric: A+Ox3, euthymic affect Lymphatic: no cervical or axillary lymphadenopathy : deferred Principal Diagnosis Acute cerebrovascular accident Discharge Exam Constitutional + well hydrated; no acute distress Eyes PERRL, conjunctivae normal, anicteric sclerae ENMT external ear and nose normal, oropharynx normal Respiratory normal respiratory effort, lungs clear to auscultation Cardiovascular Rate/Rhythm: regular rate and regular rhythm Gastrointestinal (Abdomen) normal bowel sounds, soft, nontender, no hepatosplenomegaly Neurologic PERRL, EOMI, accommodation nl, no face palsy, no dysarthria Discharge Data Allergies Allergy/AdvReac Type Severity Reaction Status Date / Time salicylates AdvReac Severe GIB Verified 12/20/20 10:42 povidone-iodine AdvReac Mild rash Verified 12/20/20 10:42 [From Betadine] soap [From Betadine] AdvReac Mild rash Verified 12/20/20 10:42 bacitracin AdvReac Unknown Verified 12/20/20 10:42 [From Neosporin ([id number])] neomycin AdvReac Unknown Verified 12/20/20 10:42 [From Neosporin ([id number])] polymyxin B AdvReac Unknown Verified 12/20/20 10:42 [From Neosporin ([id number])] Consultations 12/20/20 10:31 ED Decision to Admit Stat 12/20/20 11:15 Consult Neurology Routine 12/20/20 12:51 Consult Case Management - Discharge Planning Routine Consult Case Management - Discharge Planning Routine 12/22/20 16:07 Burn CD for patient Routine 12/23/20 10:02 Consult Cardiology Routine Ordered Studies 12/20/20 07:55 CT angio head w con Stat There is no mass, hematoma, midline shift, or acute infarct. Visualized intracranial internal carotid arteries, distal vertebral arteries, and basilar artery are widely patent. There is no significant stenosis, occlusion, or aneurysm seen within the bilateral ACAs, MCAs, or supervisor dehydrogenation. Hypoplastic distal right vertebral artery. Mild calcified plaque within the distal left vertebral artery. The major dural venous sinuses are patent. Moderate calcified plaque within the bilateral carotid siphons. IMPRESSION: No significant stenosis, occlusion, or aneurysm within the craig of [place]. CT angio neck with con Stat There is pulmonary emphysema There is a multinodular thyroid gland. There is calcific atheromatous plaque within the right innominate artery and right common carotid artery without evidence of a hemodynamically significant stenosis. There is dense calcific plaque involving the origin of the right internal carotid artery resulting in a 40% diameter stenosis. There is calcific plaque within the left common carotid artery resulting in a 40% diameter stenosis. There is no evidence of hemodynamically significant internal carotid artery stenosis. 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 There is no evidence of hemod ynamically significant left vertebral artery stenosis or dissection. There is a right vertebral artery origin stenosis. There is multifocal right vertebral artery stenosis due to facet and uncovertebral joint disease IMPRESSION: 1. Moderately extensive calcific atheromatous plaque 2. 40% diameter stenosis of the origin of the right internal carotid artery, and 40% diameter stenosis in the proximal left common carotid artery. No evidence of high-grade carotid stenosis. 3. 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 Multifocal right vertebral artery stenosis due to facet and uncovertebral joint disease CT head/brain wo con Stat The paranasal sinuses and mastoid air cells are clear. The calvarium and skull base are intact. There is no mass, hematoma, midline shift, acute infarct. White matter hypodensity is nonspecific but suggestive of microvascular ischemic change. The ventricles and sulci demonstrate mild age-related involutional changes. 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 Impression: No acute intracranial abnormality. Old lacunar infarcts seen within the bilateral cerebellar hemispheres. 12/20/20 09:38 CT abd pelvis wo con Stat Note is made of contrast within the collecting systems, ureters and bladder from recent contrast-enhanced CT. No hemoperitoneum or pneumoperitoneum is present. Evaluation of the abdomen and pelvis is suboptimal on this unenhanced examination. There is no evidence for traumatic injury to the liver, spleen, adrenal glands, kidneys or pancreas on this unenhanced exam. There are small gallstones within the gallbladder. A small suspected right renal cyst is present. There is no hydronephrosis. No lymphadenopathy is present. There is a moderate amount of stool within the rectum. There is no evidence for a bowel obstruction. A right femoral internal fixation is partially imaged. There is a healed intertrochanteric fracture of the right femur. An L1 compression fracture is likely old. No acute fracture within the pelvis or hips is identified. No acute lumbar spine fracture is identified. Moderate multilevel degenerative changes within the lumbar spine are present. There is mild dextroscoliosis of the lumbar spine. Sacroiliac joints are intact. IMPRESSION: 1. No acute traumatic findings within the abdomen or pelvis on unenhanced exam. 2. No acute fracture within the pelvis or hips. L1 compression fracture which is likely old. 3. Moderate amount of stool within the rectum. 4. Cholelithiasis. CT chest diagnostic wo con Stat Thyroid: There is a 19 mm right lobe thyroid nodule. Thoracic aorta: There is a left subclavian artery stent. There are atheromatous calcifications involving the origin of the great vessels. There is no evidence of thoracic aortic aneurysm. Heart: There are coronary artery calcifications. There is no pericardial effusion. Lungs and pleural spaces: The lungs and pleural spaces are clear. There is pulmonary emphysema. There is no pneumothorax. There are basilar atelectatic changes. There is no lobar consolidation. There is no evidence of pulmonary contusion. Mediastinum: There is no evidence of mediastinal hematoma. There is no evidence of pathologic mediastinal lymphadenopathy. There are calcified lymph nodes. Olga: There is no evidence of pathologic hilar adenopathy given the limitations of a noncontrast study Axilla: There is no evidence of pathologic axillary lymphadenopathy. Upper abdomen: Partially visualized upper abdominal viscera is within normal limits. Skeletal structures: No definite acute fractures are visualized. Several minor to a body compression deformities are likely old. There is ankylosis the spine with calcification of the anterior longitudinal ligament. IMPRESSION: No evidence of acute intrathoracic injury. 12/20/20 11:15 MR brain wo/w con Routine Clinical Trial Leader localizer images demonstrate no gross extracranial abnormality. Small linear areas (approximately 5 total) of restricted diffusion are noted within the right frontal, parietal and temporal lobes and insula measuring up to 1.6 cm. These areas demonstrate mildly increased T2/FLAIR signal with decreased signal on the ADC map. No acute intracranial hemorrhage, midline shift, abnormal extra-axial collection, hydrocephalus or intracranial mass. Age-related involutional changes. Moderate T2/FLAIR hyperintensities throughout the white matter suggest chronic microvascular ischemic disease. Chronic lacunar infarcts of the cerebellar hemispheres. No abnormal intra-axial or extra-axial enhancement. The cerebral venous sinuses and major arterial flow voids appear patent. Prior bilateral lens repair. Mastoid air cells are clear. Rightward bowing and spurri ng of the nasal septum. Mild mucosal thickening of the ethmoid air cells. IMPRESSION: 1. There are several small acute infarcts measuring less than 2 cm within the right MCA territory as above. 2. No acute intracranial hemorrhage or midline shift. 3. Age-related involutional changes with moderate chronic microvascular ischemic disease. 3. No abnormal enhancement. 4. 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 Acute CVA Right MCA territory High-grade stenosis of right vertebral artery -MRI Brain:There are several small acute infarcts measuring less than 2 cm within the right MCA territory as above. No acute intracranial hemorrhage or midline shift. Age-related involutional changes with moderate chronic microvascular ischemic disease. No abnormal enhancement. 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 -Neck CTA:Moderately extensive calcific atheromatous plaque. 40% diameter stenosis of the origin of the right internal carotid artery, and 40% diameter stenosis in the proximal left common carotid artery. No evidence of high-grade carotid stenosis. 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 Multifocal right vertebral artery stenosis due to facet and uncovertebral joint disease. -ECHO reviewed -H/O Aspirin Intolerance causing GI bleed Was evaluated by neurology Continue Plavix, statin During hospital stay, he had a few asymptomatic pauses on quality assurance monitor chassis Was evaluated by Cardiology and metoprolol reduced to 12.5mg daily Needs Zio patch as outpatient Needs follow-up with neurology in 4 to 6 weeks PT/OT evaluated and inpatient rehab recommended. Patient discharged to [facility] for rehab (3) Dehydration, mild: Resolved Discontinue IV fluid (4) Skin tear of left hand without complication: Continue dressing (5) Poor dentition: Had 2 teeth fall out 1 week ago hx of dental abscess in past requiring extractions - concerned about infection No signs of acute infection Has Dental appt next week Evaluated by Speech therapist and diet has been changed to easy to chew Patient also has moderate malnutrition from physical exam showing bony prominences, muscle wasting and noted loss of weight on chart review (6) CAD (coronary artery disease): H/O CABG x 3 h/O Subclavian artery stenosis s/p stent Follows [facility] Dr. Dial in [place] Continue statin, Plavix not on ASA 2/2 to hx of bleeding ulcer - Was on 325mg asa (7) HTN (hypertension): Controlled (8) COPD (chronic obstructive pulmonary disease): No exacerbation hx of tobacco abuse PRN duoneb Prediabetes HbA1c 5.7 Total Time Total Time Spent Total Time Spent (In Minutes): 40 Total Time Includes: Examination of the Patient, Discharge Planning and Medication Reconciliation Discharge Plan Discharge Items Patient Disposition: Transfer Inpatient Rehab Fac Reason For Visit: STROKE Discharge Diagnosis: Acute cerebrovascular accident Activity: As commented below Activity Comment: Per physical therapist instructions Non-emergency contact: Primary Care Provider and Neurologist Call non-emergency contact if: you have any medication questions and your symptoms worsen Follow-up/Referrals: Leslie Quiñonez MD [Primary Care Provider] - Diet: Heart Healthy Diet Texture: Easy to Chew Addtl Attending Provider Instructions: Mr. Zaldivar You presented to the hospital after you had a fall and noted to have left-sided weakness. You were extensively evaluated and found to have new strokes consistent with the weakness. You were also evaluated by neurologist. Your stroke is being managed medically. You were evaluated by physical therapist who recommended rehab. Your metoprolol succinate was reduced to 12.5mg daily. Please continue to take clopidogrel and atorvastatin You also will need Zio patch testing outpatient Please follow up with Neurology in 4-6 weeks It was a pleasure taking care of you Pending Studies at Discharge: No Stand-Alone Forms: My [facility] Skilled Items Patient informed of condition?: Yes DNR: Yes Discharge Level of Care: Acute rehab Communicable Disease: No Discharge Prognosis: Stable Lines: None Urinary Catheter: No Medications and DC Order Prescriptions: New atorvastatin 40 mg Tablet 40 mg PO DAILY Qty: 30 RF: 0 metoprolol succinate 25 mg Tablet Extended Release 24 Hr 12.5 mg PO DAILY Qty: 30 RF: 0 Continued Fiber (dextrin) 3 gram/3.5 gram Powder 2 tsp PO DAILY RF: 0 clopidogrel [Plavix] 75 mg Tablet 75 mg PO DAILY Qty: 30 RF: 0 mirtazapine 15 mg Tablet 15 mg PO HS Qty: 30 RF: 0 Discharge Orders: Discharge Order (Routine); Ordered 12/24/20 Ordered By: Karey Lipscomb Admission Data Admit Date/Time: 12/21/20 12:13 Attending Provider: Karey Lipscomb I. Admit Provider: Ryan Corea Primary Care Provider: Leslie Quiñonez Other Providers: Cherri Turk ; Ryan Corea ; Jackie Hodge ; Shane Darnell Other Interventions: Discharge Summary Assessment (RN) Last Done: 12/24/20 10:40
--- NOTE | 2020-12-24 12:42 | Cardiology Progress Note ---
Date of Service December 24, 2020 Assessment & Plan (1) Sinus pause: (2) Left-sided weakness: (3) Fall: (4) Vertebral artery stenosis: (5) History of coronary artery bypass graft x 3: (6) Late onset Alzheimer dementia: (7) Cerebral vascular disease: (8) HTN (hypertension): (9) HLD (hyperlipidemia): (10) CAD (coronary artery disease): The patient did have an asymptomatic pauses on telemetry that occurred while he was eating breakfast. I am suspicious that this may have been a vagal response to choking I do not believe this represents sick sinus syndrome. We will continue to monitor on telemetry overnight and decrease metoprolol succinate dose to 12.5 mg p.o. daily. We then recommend continue to follow-up with primary machine tool operator and likely outpatient telemetry monitoring. No other medication changes were made at this time. Okay to DC from a cardiac standpoint. Admission and Anticipated Discharge Date Admission Date: December 21, 2020 Subjective Patient seen and examined, chart reviewed. States that he feels a little fatigued today but otherwise well. Denies any chest pain, shortness of breath, palpitations, lightheadedness, dizziness or syncope. Anxious for discharge. Telemetry reviewed: Sinus rhythm without arrhythmia or significant pauses. Review of Systems Review of Systems: All systems reviewed & are unremarkable except as noted in HPI & below Physical Exam Physical Exam: General: Awake, alert and oriented x 3. No acute distress. HEENT: Normocephalic, atraumatic. Pupils equal, round and reactive to light and accommodation. Extraocular muscles are intact. Anicteric sclera. Moist mucous membranes. Neck: No JVD. No bruit. Cardiovascular: Regular. Positive S-4. Normal S-1 and S-2. No S-3. 3/6 mid to late systolic ejection murmur, greatest at the right sternal border, second intercostal space with radiation to the bilateral carotids. No rubs. Pulmonary: Clear to auscultation bilaterally. No rales, rhonchi, or wheezing. Abdomen: Bowel sounds x 4, soft. No rebound, guarding or tenderness. No organomegaly. Extremities: No clubbing, cyanosis or edema. +2 pedal pulses bilaterally. Skin: Warm and dry. Results & Data ([facility]) Vital Signs (Past 12 Hours) Vital Signs Temp Pulse Pulse Resp BP BP Pulse Ox 12/24/20 10:40 36.6 C 88 19 138/74 143/67 H 92 12/24/20 08:14 36.6 C 88 19 143/67 H 92 12/24/20 08:00 72 12/24/20 04:30 36.8 C 84 16 104/61 91 (1) Fall Encounter type: initial encounter Qualified Code(s): W19.XXXA - Unspecified fall, initial encounter (2) HTN (hypertension) Hypertension type: unspecified Qualified Code(s): I10 - Essential (primary) hypertension
[2020-12-25] MEDS ORDERED: METOPROLOL SUCC 25MG EXT REL TAB PO SCH (09:00)
== END 2020-12-24 12:57 | DRG 65 ==
LOC: ED 08:02 → 2S 08:02 → SUATTDRO 12-21 12:13